=== PATIENT | male | born 1970 | race Caucasian/White ===

== ENCOUNTER 2021-08-18 10:37 | Outpatient (REF) | payer MEDICARE, SELFPAY ==
--- NOTE | ~2021-08-18 | CT_ITS ---
EXAMINATION: CT CHEST WITH CONTRAST CLINICAL INFORMATION: Pulmonary fibrosis. COMPARISON: None. TECHNIQUE: Multidetector volumetric CT imaging of the chest was obtained after the administration of 75 mL of Omnipaque 350 intravenous contrast without immediate adverse reactions. Axial MIP volume rendering provided. Sagittal and coronal reformatted images were obtained. This CT examination was performed using dose optimization techniques as appropriate, variously including the following: *Automated exposure control *Adjustment of mA and/or kV according to patient size (this includes techniques or standardized protocols for targeted exams where dose is matched to indication/reason for exam; i.e. extremities or head) *Use of iterative reconstruction technique DLP: 152 mGy-cm FINDINGS: RIVERBOAT MASTER: Expanded lungs with a small nodule in the right midlung. LUNGS: The lungs are well-expanded and clear of acute pneumonic process. There is a 7 mm calcified nodule in the right upper lobe axial image 76/9. No additional calcified or noncalcified pulmonary nodules are visualized. There are several small parenchymal cysts seen in the right lower lobe, left upper lobe and right middle lobe. Minimal atelectatic changes are seen in the lingula. There is no interstitial thickening or honeycombing visualized. MEDIASTINUM: The thyroid lobes are symmetric and normal. Central trachea and the bronchi are widely patent. There are small shotty lymph nodes in the mediastinum. The heart size and the great vessels are normal caliber. There is no pericardial effusion. PLEURA: There is no pleural effusion. No pleural mass or thickening. AXILLA: No lymphadenopathy. UPPER ABDOMEN: Visualized liver, spleen, pancreas and bilateral adrenal glands are unremarkable. OSSEOUS STRUCTURES: No aggressive lytic or sclerotic process is seen. CT/CT chest w con IMPRESSION: Calcified nodule in the right upper lobe likely a granuloma. There is no interstitial thickening or honeycombing to suspect any pulmonary fibrosis at this time. There are small pulmonary cysts in the right upper, lower lobe and lingular segments. Minimal atelectatic changes in the lingula. Fleischner guidelines were followed.
[2021-08-18] MEDS: iohexoL 350 MG/ML 100 ML INFUS..BTL IV (11:40)
== END 2021-08-18 10:38 | disposition home or self-care (01) ==
LOC: HO.CT 10:37
PROVIDERS: PCP Hospitalist; Visit Provider Hospitalist
DX: J84.10 Pulmonary fibrosis, unspecified (principal)
CPT/HCPCS: 71260; Q9967

== ENCOUNTER 2022-02-18 07:57 | Outpatient (REF) | payer MEDICARE, SELFPAY ==
--- NOTE | ~2022-02-18 | CT_ITS ---
CT/CT chest w IV con IMPRESSION: Right upper lobe 6 mm calcified nodule is unchanged. No new or enlarging pulmonary nodule. Fleischner guidelines were followed. EXAMINATION: CT CHEST WITH CONTRAST CLINICAL INFORMATION: Abnormal chest results COMPARISON: 08/18/2021 TECHNIQUE: Multidetector volumetric CT imaging of the chest was obtained after the administration of 65 mL of Omnipaque 350 intravenous contrast without immediate adverse reactions. Axial MIP volume rendering provided. Sagittal and coronal reformatted images were obtained. This CT examination was performed using dose optimization techniques as appropriate, variously including the following: *Automated exposure control *Adjustment of mA and/or kV according to patient size (this includes techniques or standardized protocols for targeted exams where dose is matched to indication/reason for exam; i.e. extremities or head) *Use of iterative reconstruction technique DLP: 116 FINDINGS: LUNGS: Right upper lobe 6 mm calcified nodule (5:81), unchanged. No new or enlarging pulmonary nodule. Central airways are patent. Again seen are small parenchymal cysts in the right lower lobe, left upper lobe and right middle lobe. MEDIASTINUM: No mediastinal adenopathy. No hilar adenopathy. No significant coronary artery atherosclerotic calcifications. PLEURA: There is no pleural effusion. No pleural mass or thickening. AXILLA: No lymphadenopathy. UPPER ABDOMEN: Unremarkable. OSSEOUS STRUCTURES/SOFT TISSUES: Symmetric gynecomastia.
[2022-02-18] MEDS: iohexoL 350 MG/ML 100 ML INFUS..BTL IV (09:16)
[2022-02-21 13:29] LABS: Creatinine POC 0.6 mg/dL (0.5-1.4); GFR POC > 60
== END 2022-02-18 07:58 | disposition home or self-care (01) ==
LOC: HO.CT 07:57
PROVIDERS: Visit Provider Hospitalist
DX: R93.89 Abnormal findings on diagnostic imaging of other specified body structures (principal)
CPT/HCPCS: 71260; 82565; Q9967

== ENCOUNTER → 2022-07-05 10:08 | Outpatient (BNVA) | payer MEDICARE, OTHER, SELFPAY | PROVIDERS: PCP Hospitalist; Visit Provider Internal Medicine | DX: Z01.818 Encounter for other preprocedural examination (principal) | CPT/HCPCS: 99202 ==

== ENCOUNTER 2022-08-11 07:32 | Outpatient (REF) | payer MEDICARE, OTHER, SELFPAY ==
--- NOTE | ~2022-08-11 | CT_ITS ---
EXAMINATION: CT CHEST WITHOUT CONTRAST CLINICAL INFORMATION: Right upper lobe 6 mm calcified nodule COMPARISON: Previous chest CT scans February 2022 and August 2021 TECHNIQUE: Multidetector volumetric CT imaging of the chest was done. Axial MIP volume rendering provided. Sagittal and coronal reformatted images were obtained. This CT examination was performed using dose optimization techniques as appropriate, variously including the following: *Automated exposure control *Adjustment of mA and/or kV according to patient size (this includes techniques or standardized protocols for targeted exams where dose is matched to indication/reason for exam; i.e. extremities or head) *Use of iterative reconstruction technique DLP: 235 mGy-cm FINDINGS: LUNGS: Limited exam due to artifact from respiratory motion. Mild paraseptal and edema. This all stable 2 mm left upper lobe nodule axial image 89 series 5. 6 mm calcified right middle lobe nodule axial image 216 series 5 that is stable. Scarring or subsegmental atelectasis in the inferior segment of the lingula. Small scattered lung cysts largest measuring 1.5 cm in the right lower lobe. MEDIASTINUM: Small calcified right hilar and mediastinal lymph nodes suggestive of old granulomatous disease. No enlarged lymph nodes. Normal heart size. No pericardial effusion. Normal caliber thoracic aorta. CORONARY ARTERY CALCIFICATION: Mild PLEURA: There is no pleural effusion. No pleural mass or thickening. AXILLA: No lymphadenopathy. UPPER ABDOMEN: Unremarkable. OSSEOUS STRUCTURES: Unremarkable. CT/CT chest wo IV con IMPRESSION: Limited exam due to respiratory motion. Mild emphysema and cystic changes. Stable pulmonary nodules probably related to granulomatous disease.. Pulmonary nodules are stable going back to oldest available chest CT from one year ago and no additional chest CT follow-up recommended. Fleischner guidelines were followed.
== END 2022-08-11 07:33 | disposition home or self-care (01) ==
LOC: HO.CT 07:32
PROVIDERS: PCP Hospitalist; Visit Provider Hospitalist
DX: R91.1 Solitary pulmonary nodule (principal)
CPT/HCPCS: 71250

== ENCOUNTER 2022-11-03 10:15 | Day surgery (SDC) | payer MEDICARE, SELFPAY ==
[2022-11-02 11:56] VITALS: BMI 26.6
--- NOTE | 2022-11-02 13:35 | HO.ANESPROP2 ---
Documented by User: Reyna Carballo NP 11/02/22 14:39 HPI - Anesthesia Eval Consult details Narrative: 52yo M for Upper Endoscopy and Colonoscopy SN[facility] resident TBI, Seizures. Does not sign for self PMFSH Active Problems Active Problems: All Active Problems (Updated 11/02/22 @ 11:59 by Juli Doyle RN) Colon cancer screening (Acute) Past Medical History Medical History Cancer HIV (human immunodeficiency virus infection) History of traumatic head injury Seizures Lung granuloma Surgical History Surgical History Hx of appendectomy Social History Social History Household Members: Other Household Members Other:: Giovanny garcía Advance Directives: No Advance Directives Information Provided: Yes Meds Allergies Allergy/AdvReac Type Severity Reaction Status Date / Time No Known Allergies Allergy Verified 07/05/22 10:15 Home Medications Medication Instructions Recorded Confirmed Last Taken Type acetaminophen 325 mg capsule 325 mg PO QID PRN 07/05/22 Unknown History adjuvant AS01B (PF)vial 1 of 2 ml IM 07/05/22 Unknown History (Shingrix Adjuvant Component (PF) intramuscular suspension) bictegravir 50 mg-emtricitabine 1 tab PO DAILY 07/05/22 Unknown History 200 mg-tenofovir alafenam 25 mg tablet (Biktarvy) carbamazepine 100 mg 400 mg PO DAILY 07/05/22 Unknown History capsule,extended release [id number] levetiracetam 1,000 mg tablet 1,000 mg PO BID 07/05/22 Unknown History (Keppra) loperamide 2 mg capsule 2 mg PO Q6H PRN 07/05/22 Unknown History lorazepam 2 mg tablet 2 mg PO BEDTIME PRN 07/05/22 Unknown History lurasidone 80 mg tablet (Latuda) 80 mg PO DAILY 07/05/22 Unknown History metoprolol succinate 25 mg 25 mg PO BID 07/05/22 Unknown History tablet,extended release 24 hr polyethylene glycol 3350 17 17 g PO DAILY 07/05/22 Unknown History gram/dose oral powder (Miralax) sennosides 8.6 mg capsule (senna) 8.6 mg PO BEDTIME 07/05/22 Unknown History sodium chloride 1 gram tablet 1,000 mg PO TID 07/05/22 Unknown History sodium phosphates 19 gram-7 118 ml TX DAILY PRN 07/05/22 Unknown History gram/118 mL enema (Fleet Enema) Exam Exam Date and Time: November 02, 2022 1335 Height,Weight and Vital Signs: Height 5 ft 5 in Weight 72.575 kg Assessment and Plan Assessment Anesthesia Assessment: Chart Reviewed Documented by User: Lilly Britton MD 11/03/22 11:39 [facility] Past Medical History Medical History Cancer HIV (human immunodeficiency virus infection) History of traumatic head injury Seizures Lung granuloma Surgical History Surgical History Hx of appendectomy History of Problems with Anesthesia: No Social History Social History Household Members: Other Household Members Other:: Carenilsa garcía Advance Directives: No Advance Directives Information Provided: Yes Meds Allergies Allergy/AdvReac Type Severity Reaction Status Date / Time No Known Allergies Allergy Verified 07/05/22 10:15 Home Medications Medication Instructions Recorded Confirmed Last Taken Type acetaminophen 325 mg capsule 325 mg PO QID PRN 07/05/22 Unknown History adjuvant AS01B (PF)vial 1 of 2 ml IM 07/05/22 Unknown History (Shingrix Adjuvant Component (PF) intramuscular suspension) bictegravir 50 mg-emtricitabine 1 tab PO DAILY 07/05/22 Unknown History 200 mg-tenofovir alafenam 25 mg tablet (Biktarvy) carbamazepine 100 mg 400 mg PO DAILY 07/05/22 Unknown History capsule,extended release [id number] levetiracetam 1,000 mg tablet 1,000 mg PO BID 07/05/22 Unknown History (Keppra) loperamide 2 mg capsule 2 mg PO Q6H PRN 07/05/22 Unknown History lorazepam 2 mg tablet 2 mg PO BEDTIME PRN 07/05/22 Unknown History lurasidone 80 mg tablet (Latuda) 80 mg PO DAILY 07/05/22 Unknown History metoprolol succinate 25 mg 25 mg PO BID 07/05/22 Unknown History tablet,extended release 24 hr polyethylene glycol 3350 17 17 g PO DAILY 07/05/22 Unknown History gram/dose oral powder (Miralax) sennosides 8.6 mg capsule (senna) 8.6 mg PO BEDTIME 07/05/22 Unknown History sodium chloride 1 gram tablet 1,000 mg PO TID 07/05/22 Unknown History sodium phosphates 19 gram-7 118 ml TX DAILY PRN 07/05/22 Unknown History gram/118 mL enema (Fleet Enema) Exam Airway Mallampati Class: II (edentulous) TM Dist: >3cm Neck ROM: Full Loose/Missing/Broken Teeth: Yes, Upper and Lower Heart: RRR Lungs: CTA Assessment and Plan Assessment Anesthesia Assessment: Anesthesia Plan Discussed Final Anesthetic Review History of Problems with Anesthesia: No NPO: Yes ASA Class: III Final Preanesthetic Review: Meds/Allgs Chart Reviewed, Consent Obtained/Reviewed and Anes Risks/Benef Reviewed Patient Risk: Intermediate Procedure Risk: Intermediate Anesthetic Plan Anesthetic Plan: MAC: Disposition: Standard PACU
[2022-11-03 10:52] VITALS: BP 118/74; PULSE 74; RESP 16; TEMP 36.5; O2SAT 99
--- NOTE | 2022-11-03 11:21 | PC.NURSE ---
A+Ox1, legally blind, needs assistance walking Olinda from [facility] present dementia memory loss from minute to minute consents obtained from guardian/sister pricila oterowilber silvestre [phone]
--- NOTE | 2022-11-03 11:22 | MHC.SHP ---
Pre-Procedural Eval Section A Date of Service: 11/03/22 Section B Chief Complaint: Anemia Details of Present Illness: PMH: prev CVA, behavorial disorder, dementia, seizure disorder, Present Medications: see Short Stay Collaborative assessment Allergies: Allergies Allergy/AdvReac Type Severity Reaction Status Date / Time No Known Allergies Allergy Verified 07/05/22 10:15 Review of Systems Review of Systems Comment: Limited ROS due to mental status Exam Exam Comment: Gen appear: No acute distress HEENT: no icterus Chest: No overt resp distress Abd: soft, nontender, nondistended Psych: Stable affect, answering questions appropriately Neuro: A/Ox3 noted to move all extremities spontaneously Ext: no peripheral edema Plan I have reviewed the history and physical and performed a pertinent physical examination on my patient. No changes have occurred unless specified. Consent taken from HCP/sister Latoya Tatum Time Spent With Patient Time: Total time managing care of this patient today ____ minutes.
--- NOTE | 2022-11-03 11:42 | P.OP_ITS ---
Operative Note Operative Note Date of Service: 11/03/22 Narrative: Procedure:?Esophagogastroduodenoscopy and colonoscopy Endoscopist:?Lupis Collier MD Indication:?Anemia Anesthesia Provider:?Jaqui Dial CRNA Anesthesia Type:?MAC Instrument:?Olympus GIF-H190, [id number]-H190L EGD Procedure:?? The procedure, indications, preparation and potential complications were reviewed with the patient's healthcare proxy/sister who indicated understanding and gave written informed consent to proceed over the phone. A physical exam was performed. The endoscope was introduced through the mouth, and advanced to the second part of duodenum. The mucosa was carefully examined on slow withdrawal of the endoscope. There were no immediate complications. Patient tolerated the procedure well. EGD Findings:? * Esophagus:? Erythema and erosions < 5mm at the GEJ. The Z-line is at 40 cm. * Stomach:? Erythema and erosions with heme noted in the body and antrum of the stomach. Retroflexion performed in the fundus. Random cold forceps biopsies were taken to rule out H pylori. * Duodenum:? Erythema in the duodenal bulb noted. Cold forceps biopsies were taken from the duodenal bulb and 2nd portion the duodenum to rule out celiac sprue. Colonoscopy Procedure:? The patient was then turned for the colonoscopy. A digital rectal exam was performed which was normal.? A distal attachment cap was affixed to the tip of the scope and the colonoscope was then inserted through the anus and advanced through the colon to the ilecolonic anatomosis at 70 cm. Mucosa was carefully examined under high definition white light as the instrument was slowly withdrawn in a retrograde panoramic fashion. Retroflexion was performed in rectum. The procedure was not difficult. There were no immediate obvious complications. The quality of the prep was BBPS: 2+2+2 = adequate Withdrawal time: 10 minutes Limitations: No limitation. Findings: Mucosa: Normal mucosa to ileocolonic anastomosis. Protruding lesions: * Large internal hemorrhoids with stigmata of recent bleeding. Impression: 1. Grade A esophagitis 2. Gastritis (biopsy) 3. Bulbar duodenitis (biopsy) 4. Normal colon mucosa 5. Internal hemorrhoids Recommendations:?? * Await pathology results. * Start Omeprazole 20mg BID x 4 weeks, and then decrease to once daily indefinitely. * Repeat colonoscopy for asymptomatic colon cancer screening in 5 years due to prep.
[2022-11-03 12:05] VITALS: BP 103/82; PULSE 77; RESP 16; TEMP 36.6
[2022-11-03 12:20] VITALS: BP 109/70; PULSE 64; RESP 18; O2SAT 98
[2022-11-03 12:35] VITALS: BP 118/68; PULSE 77; RESP 18; TEMP 36.6; O2SAT 100
== END 2022-11-03 13:10 | disposition home or self-care (01) ==
PROVIDERS: PCP Hospitalist; Visit Provider Internal Medicine
PROC: (CPT 43239; principal; 2022-11-03 11:00)
DX: Z12.11 Encounter for screening for malignant neoplasm of colon (principal); Z85.038 Personal history of other malignant neoplasm of large intestine; D64.9 Anemia, unspecified; K64.8 Other hemorrhoids; Z98.0 Intestinal bypass and anastomosis status; B20 Human immunodeficiency virus [HIV] disease; K29.70 Gastritis, unspecified, without bleeding; K20.80 Other esophagitis without bleeding; K29.80 Duodenitis without bleeding; G40.909 Epilepsy, unspecified, not intractable, without status epilepticus; J84.10 Pulmonary fibrosis, unspecified; F03.918 Unspecified dementia, unspecified severity, with other behavioral disturbance; Z87.820 Personal history of traumatic brain injury; Z87.891 Personal history of nicotine dependence
CPT/HCPCS: 43239; G0105; 88305; 88342

== ENCOUNTER → 2022-11-03 10:15 | Outpatient (BNV) | payer MEDICARE, SELFPAY | PROVIDERS: PCP Hospitalist; Visit Provider Internal Medicine | DX: D64.9 Anemia, unspecified (principal); K29.70 Gastritis, unspecified, without bleeding; K20.90 Esophagitis, unspecified without bleeding; K64.8 Other hemorrhoids | CPT/HCPCS: 43239; G0121 ==

== ENCOUNTER 2022-11-16 08:47 | Outpatient (AMB) | payer MEDICARE, SELFPAY ==
[2022-11-16 08:49] VITALS: BMI 26.4
--- NOTE | 2022-11-16 08:49 | MHC.OFFVIS ---
Intake Vital Signs 11/16/22 08:49 Height 5 ft 5 in Weight 158 lb 11.725 oz BMI 26.4 Intake Visit Reasons: S/P Double/ Dr. Collier Intake Note: Theo presents in the office as a follow up EGD and COLO. CC: No concerns since his procedures. Just here for the results. Allergies No Known Allergies Allergy (Verified 11/16/22 08:52) HPI HPI Comments History of Present Illness Details This is a 52 y.o M with PMH of prev CVA, behavorial disorder, dementia, seizure disorder, who is here for follow up after endoscopy for anemia. 07/05/22: Hx was obtained from the pt as well as the attendant from [employer] accompaying him. Patient reports no gastrointestinal symptoms include abdominal pain, nausea vomiting, diarrhea. No blood in stool. No family history of colon cancer or colon polyps that he is aware of. Pt and sister had initially opted for screening through cologuard however updated labs were significant for anemia and therefore decision was made to proceed with EGD and colo. 11/03/22: 1. Grade A esophagitis 2. Gastritis (biopsy) 3. Bulbar duodenitis (biopsy) 4. Normal colon mucosa 5. Internal hemorrhoids Path: A. Duodenum, biopsy: Duodenal mucosa within normal limits; preserved villous architecture and no increased intraepithelial lymphocytes seen. B. Stomach, random, biopsy: Gastric antral mucosa with reactive gastropathy; gastric body mucosa within normal limits; negative for Helicobacter pylori, intestinal metaplasia and dysplasia 11/16/22: Pt here for follow up after scopes. Accompanied by his caretakers. Reviewed findings on EGD/colo. Reviewed med list and has been taking omeprazole 20 BID x 2 weeks at least. Results have already been reviewed with sister/HCP Ana. [facility] Medical History Cancer HIV (human immunodeficiency virus infection) History of traumatic head injury Seizures Lung granuloma Surgical History Hx of colonoscopy History of esophagogastroduodenoscopy (EGD) Hx of appendectomy Social History Household Members: Other Household Members Other:: [facility] [place] Patient Tobacco Use Status: Former Tobacco user Review of Systems Const All systems reviewed & are unremarkable except as noted in HPI and below Physical Exam Vital Signs: BMI result Body Mass Index 26.4 Gen appear: NAD, not making eye contact HEENT: nonicteric Chest: No overt resp distress CVS: Regular S1/S2 Abd: soft, nontender, nondistended Ext: no peripheral edema Neuro: noted to move all extremities spontaneously Assessment & Plan Assessment & Plan (1) Anemia: Code(s): D64.9 - Anemia, unspecified (2) Esophagitis: Code(s): K20.90 - Esophagitis, unspecified without bleeding (3) Gastritis: Code(s): K29.70 - Gastritis, unspecified, without bleeding (4) Colon cancer screening: Code(s): Z12.11 - Encounter for screening for malignant neoplasm of colon Plan Doing well. No GI concerns today. Plan: - Cont omeprazole 20 BID x 8 weeks total and then once daily - Stay upright for meals and for an hour after - Repeat colo for CRC screening in 5 years due to prep. Follow up in GI office PRN Coding Level of Care Code Est Pt Level 4 (87578) Diagnoses Anemia D64.9 Esophagitis K20.90 Gastritis K29.70 Colon cancer screening Z12.11
== END 2022-11-16 09:47 | disposition home or self-care (01) ==
PROVIDERS: PCP Hospitalist; Visit Provider Internal Medicine
DX: D64.9 Anemia, unspecified (principal); K20.90 Esophagitis, unspecified without bleeding; K29.70 Gastritis, unspecified, without bleeding; Z12.11 Encounter for screening for malignant neoplasm of colon
CPT/HCPCS: 99214

== ENCOUNTER → 2022-11-16 08:47 | Outpatient (BNVA) | payer MEDICARE, SELFPAY | PROVIDERS: PCP Hospitalist; Visit Provider Internal Medicine | DX: K20.90 Esophagitis, unspecified without bleeding (principal); K29.70 Gastritis, unspecified, without bleeding; K29.80 Duodenitis without bleeding; K64.8 Other hemorrhoids; D64.9 Anemia, unspecified; Z98.890 Other specified postprocedural states | CPT/HCPCS: 99212 ==

== ENCOUNTER 2023-09-25 12:16 | Inpatient (IN) | payer MEDICARE, SELFPAY ==
[2023-09-25] VITALS (10 sets, daily range): BP systolic 96–127; BP diastolic 61–82; PULSE 93–127; RESP 17–25; TEMP 35.1–38.8; O2SAT 97–99; BMI 27.1
--- NOTE | ~2023-09-25 | XR_ITS ---
EXAMINATION: XR CHEST CLINICAL INFORMATION: Pneumonia. Patient on able to follow instructions, not awake COMPARISON: None available. TECHNIQUE: AP upright view of the chest, 1:42 PM FINDINGS: No significant abnormality is noted involving the heart, lungs, mediastinum, bony thorax or soft tissues. Mild biapical pleural thickening is noted. XR/XR chest 2V IMPRESSION: No acute cardiopulmonary disease.
--- NOTE | ~2023-09-25 | CT_ITS ---
EXAMINATION: CT CHEST WITHOUT CONTRAST CLINICAL INFORMATION: Question aspiration pneumonia. COMPARISON: None available. TECHNIQUE: Multidetector volumetric CT imaging of the chest was done. Axial MIP volume rendering provided. Sagittal and coronal reformatted images were obtained. This CT examination was performed using dose optimization techniques as appropriate, variously including the following: *Automated exposure control *Adjustment of mA and/or kV according to patient size (this includes techniques or standardized protocols for targeted exams where dose is matched to indication/reason for exam; i.e. extremities or head) *Use of iterative reconstruction technique DLP: 477 mGy-cm FINDINGS: Limited exam secondary to patient motion and breathing artifact. ICT TEACHER: Hypoexpanded lungs without acute process. LUNGS: The lungs are well-expanded without any acute pneumonic process. There is dependent posterior basilar atelectasis or scarring. There is a right upper lobe 5 mm calcified nodule image 27/3. No additional nodules seen. Small pulmonary cyst is seen in left upper lobe and right lower lobe. MEDIASTINUM: Heart size and the great vessels are normal caliber. No pericardial effusion seen. There are small shotty lymph nodes in the mediastinum. The central trachea and bronchi are widely patent. CORONARY ARTERY CALCIFICATION: None visualized on this study. PLEURA: There is no pleural effusion. No pleural mass or thickening. AXILLA: There are small shotty axillary lymph nodes seen. UPPER ABDOMEN: Visualized liver, spleen, pancreas and bilateral adrenal glands are unremarkable. OSSEOUS STRUCTURES: No aggressive lytic or sclerotic process seen. CT/CT chest wo IV con IMPRESSION: 1. No acute process seen. 2. There is a 5 mm calcified nodule right upper lobe. 3. There is dependent posterior bibasilar atelectasis or scarring. 4. Small shotty lymph nodes in the mediastinum and axilla. Fleischner guidelines were followed.
--- NOTE | ~2023-09-25 | CT_ITS ---
EXAMINATION: CT HEAD WITHOUT CONTRAST CLINICAL INFORMATION: Mechanical fall. Blunt head trauma without loss of consciousness, significant head injury and posttraumatic headache. COMPARISON: CT scan of brain on 09/25/2023 TECHNIQUE: Contiguous axial imaging was performed from the skull base to vertex without intravenous administration of contrast. This CT examination was performed using dose optimization techniques as appropriate, variously including the following: *Automated exposure control *Adjustment of mA and/or kV according to patient size (this includes techniques or standardized protocols for targeted exams where dose is matched to indication/reason for exam; i.e. extremities or head) *Use of iterative reconstruction technique DLP: 824 mGy-cm FINDINGS: Ventricles, sulci and cisterns are dilated, with mild disproportional ventriculomegaly. Chronic infarction with cystic encephalomalacia is seen in left head of caudate nucleus, could involve the anterior limb and genu of left internal capsule, bilateral posterior gyri recti. A chronic lacunar infarct is also seen in posterior lateral left lentiform nucleus (putamen). Anterior left coronal radiata shows asymmetric decrease in attenuation.. There is no midline shift, no abnormal intra- or extra- axial fluid accumulation. Padron and white matter differentiation is normal. Bone window images show no evidence of skull fracture. CT/CT head/brain wo IV con IMPRESSION: 1. No evidence of intracranial hemorrhage or skull fracture. 2. Unchanged Chronic infarction with cystic encephalomalacia in left head of caudate nucleus, could involve the anterior limb and genu of left internal capsule, bilateral posterior gyri recti. 3. Unchanged Chronic lacunar infarct in posterior lateral left lentiform nucleus (putamen). 4. Unchanged Anterior left jimenez radiata shows asymmetric decrease in attenuation. 5. Unchanged Mild atrophy with mild disproportional ventriculomegaly. Electronically signed by: Rick Krishnamurthy MD 09/28/2023 03:46 PM EDT
--- NOTE | ~2023-09-25 | CT_ITS ---
EXAMINATION: CT HEAD WITHOUT CONTRAST CLINICAL INFORMATION: Altered mental status COMPARISON: None. TECHNIQUE: Multidetector CT examination of the head is performed without contrast. This CT examination was performed using dose optimization techniques as appropriate, variously including the following: *Automated exposure control *Adjustment of mA and/or kV according to patient size (this includes techniques or standardized protocols for targeted exams where dose is matched to indication/reason for exam; i.e. extremities or head) *Use of iterative reconstruction technique The technologist indicates that the patient was unable to remain still. The patient was reportedly combative on the table. DLP: 1329 mGy-cm FINDINGS: There is marked motion artifact. This limits the exam. There is no evidence of a large recent intracranial hemorrhage or extra-axial collection. The midline structures are nondisplaced. The lateral ventricles appear somewhat prominent. There is some low-attenuation suspected in the medial left temporal region and just above the left orbital apex. There is a calcification adjacent to the lower left side of the third ventricle. This does not appear metallic. There is no evidence of a solid intra-axial mass. There are no other suspicious focal areas of abnormal brain attenuation. The galindo-white interface is within normal limits. There is no evidence of acute territorial infarct. There is low-attenuation adjacent to the frontal horn left lateral ventricle which extends toward the area of low-attenuation on the left side near the medial temporal region. No convincing mass effect. There is some low-attenuation in the medial left temporal region adjacent to the extreme capsule. The paranasal sinuses and mastoids are within normal limits. CT/CT head/brain wo IV con IMPRESSION: 1. Limited study. 2. No large acute hemorrhage. 3. There is some low-attenuation on the left with at least a small calcification. No convincing mass effect. This could be a sequelae from previous trauma or infarct but is nonspecific. Direct comparison with any previous studies would be helpful. If there are no previous and patient condition allows, repeat should be considered
--- NOTE | ~2023-09-25 | XR_ITS ---
RADIOGRAPH LEFT KNEE CLINICAL HISTORY: Fall. COMPARISON: No relevant prior studies are available for comparison. TECHNIQUE: 2 views of the left knee were obtained. FINDINGS: No acute fracture or dislocation. Joint spaces are maintained. No abnormal soft tissue calcifications. No joint effusion. XR/XR knee LT 2V IMPRESSION: No significant radiographic abnormality of the left knee. Electronically signed by: Nia Jacobs MD 09/28/2023 01:09 PM EDT
--- NOTE | 2023-09-25 12:51 | ECG_ITS ---
Test Reason : AMS Blood Pressure : / mmHG Vent. Rate : 124 BPM Atrial Rate : 124 BPM P-R Int : 146 ms QRS Dur : 064 ms QT Int : 318 ms P-R-T Axes : 060 -60 022 degrees QTc Int : 456 ms Sinus tachycardia Left anterior fascicular block Nonspecific ST abnormality Abnormal ECG No previous ECGs available Referred By: Jonathan iXe Electronically Signed By:JANIYA CAMPOS
--- NOTE | 2023-09-25 12:56 | ED_ITS ---
HPI - Altered Mental Status General Chief Complaint: Altered Mental Status Stated Complaint: AMS,?ASP PNA FROM SNF PER EMS Time Seen by Provider: 09/25/23 12:49 History of Present Illness ED Provider: Rojas HPI narrative: 53-year-old male with past medical history of encephalopathy, frontotemporal neurocognitive disorder, HIV, cerebral ischemia, DNR/DNI per [facility] report presenting for altered mental status. Per EMS patient has been experiencing cough, tachycardia and worsening altered mental status with concerns for aspiration a he has apparently had aspiration pneumonia in the past. Patient is somnolent at bedside and unable to provide history. Related Data Home Medications ?Medication ?Instructions ?Recorded ?Confirmed acetaminophen 325 mg capsule 325 mg PO QID PRN 07/05/22 adjuvant AS01B (PF)vial 1 of 2 ml IM 07/05/22 (Shingrix Adjuvant Component (PF) intramuscular suspension) bictegravir 50 mg-emtricitabine 1 tab PO DAILY 07/05/22 200 mg-tenofovir alafenam 25 mg tablet (Biktarvy) carbamazepine 100 mg 400 mg PO DAILY 07/05/22 capsule,extended release [id number] levetiracetam 1,000 mg tablet 1,000 mg PO BID 07/05/22 (Keppra) loperamide 2 mg capsule 2 mg PO Q6H PRN 07/05/22 lorazepam 2 mg tablet 2 mg PO BEDTIME PRN 07/05/22 lurasidone 80 mg tablet (Latuda) 80 mg PO DAILY 07/05/22 metoprolol succinate 25 mg 25 mg PO BID 07/05/22 tablet,extended release 24 hr polyethylene glycol 3350 17 17 g PO DAILY 07/05/22 gram/dose oral powder (Miralax) sennosides 8.6 mg capsule (senna) 8.6 mg PO BEDTIME 07/05/22 sodium chloride 1 gram tablet 1,000 mg PO TID 07/05/22 sodium phosphates 19 gram-7 118 ml IN DAILY PRN 07/05/22 gram/118 mL enema (Fleet Enema) Previous Rx's ?Medication ?Instructions ?Recorded omeprazole 20 mg capsule,delayed 20 mg PO BID #90 caps 11/03/22 release Allergies Allergy/AdvReac Type Severity Reaction Status Date / Time No Known Allergies Allergy Unverified 09/25/23 12:45 Review of Systems 2 Review of Systems: Altered mental status, cough, tachycardia Yes Unobtainable due to mental status [facility] Past Medical History Attestation statement: The following information was validated with the patient. [facility] Narrative: HIV, frontotemporal neurocognitive disorder, cerebral ischemia Source: old records reviewed Medical History Cancer HIV (human immunodeficiency virus infection) History of traumatic head injury Seizures Lung granuloma Surgical History Hx of colonoscopy History of esophagogastroduodenoscopy (EGD) Hx of appendectomy Social History Social History Household Members: Other Household Members Other:: Giovanny garcía Patient Tobacco Use Status: Former Tobacco user Advance Directives: No Advance Directives Information Provided: No Physical Exam ED Vital Signs: Vital Signs - 24 hr 09/25/23 12:43 09/25/23 12:45 09/25/23 15:10 Temperature 100.6 F H 101.9 F H 95.1 F L Pulse Rate 127 H 113 H Respiratory Rate 21 H 17 Blood Pressure 100/61 96/72 Pulse Oximetry 97 99 Oxygen Delivery Method Room Air Room Air 09/25/23 15:18 09/25/23 16:11 09/25/23 17:48 Temperature 99.3 F 98.5 F Pulse Rate 112 H 106 H 103 H Respiratory Rate 24 H 25 H 18 Blood Pressure 96/72 103/71 109/73 Pulse Oximetry 99 99 98 Oxygen Delivery Method Room Air Room Air Room Air 09/25/23 18:47 Temperature 98.0 F Pulse Rate 102 H Respiratory Rate 21 H Blood Pressure 100/79 Pulse Oximetry 98 Oxygen Delivery Method Room Air BMI result Body Mass Index 27.1 Head normocephalic atraumatic, lungs clear auscultation bilaterally however patient was coughing at bedside, tachycardic, abdomen is soft, nontender nondistended Course Course Course Narrative: Evaluated patient and ordered labs, imaging and antibiotics Reevaluation(s) Reevaluation #1: 3rd Liter ordered Time: 15:06 Medications Administered Discontinued Medications Generic Name Dose Route Start Last Admin Trade Name Freq PRN Reason Stop Dose Admin Acetaminophen 650 mg 09/25/23 12:53 09/25/23 13:07 Acetaminophen Supp 650 Mg Supp.Rect IN 09/25/23 12:54 650 mg ONCE ONE Administration Sodium Chloride 1,000 mls @ 999 mls/hr 09/25/23 13:00 09/25/23 15:15 Ns IV 09/25/23 14:00 Infused .Q1H1M NIKKO Infusion Sodium Chloride 1,000 mls @ 999 mls/hr 09/25/23 13:00 09/25/23 15:15 Ns IV 09/25/23 14:00 Infused .Q1H1M NIKKO Infusion Piperacillin Sod/Tazobactam 50 mls @ 100 mls/hr 09/25/23 12:54 09/25/23 14:39 Sod 3.375 gm/ Sodium Chloride IV 09/25/23 13:23 Infused ONCE ONE Infusion Vancomycin HCl 2,000 mg in 500 mls @ 250 mls/hr 09/25/23 13:30 09/25/23 16:09 Vancomycin/Ns IV 09/25/23 15:29 Infused ONCE ONE Infusion Sodium Chloride 1,000 mls @ 999 mls/hr 09/25/23 15:15 09/25/23 16:24 Ns IV 09/25/23 16:15 Infused .Q1H1M NIKKO Infusion Medical Decision Making Medical Decision Making [facility] Narrative: I am concerned for the following; sepsis, pneumonia, UTI, COVID, flu, harley I ordered labs, fluids, antibiotics, chest x-ray CT head ordered to rule out head bleed --> negative for acute trauma Patient given 3 L of fluid with improvement in symptoms; 4th liter ordered At this point I do not feel that patient needs vasopressors as his blood pressure has responded well to fluids and he does not have a lactic acid. I spoke with hospitalist who accepted the patient to the floor Differential Diagnosis Differential Diagnoses: The differential diagnosis associated with the presentation includes sepsis, aspiration/pnumonia, uti, covid, flu ,harley Consult Healthcare Provider Management of the patient was discussed with: Hospitalist Patient accepted for admission Lab Data [facility] Lab Attestation statement: I reviewed the patient's lab results. Thrombocytopenia, blood in urine likely secondary to catheter placement, normal lactic acid 09/25/23 12:55 09/25/23 12:55 Labs: Lab Results 09/25/23 09/25/23 09/25/23 Range/Units 12:55 13:01 13:14 WBC 4.2 L (4.8-10.8) X10*3/uL RBC 4.26 L (4.60-5.80) X10*6/uL Hgb 14.3 (14.0-18.0) g/dl Hct 40.9 L (42.0-52.0) % MCV 96.0 (80.0-98.0) fL MCH 33.6 H (27.0-33.0) pg MCHC 35.0 (31.0-36.0) g/dl RDW 11.9 (11.0-16.0) % Plt Count 72 L (160-400) X10*3/uL MPV 9.8 (9.4-12.4) fL Immature Gran % (Auto) 0.2 (0.0-0.4) % Neut % (Auto) 67.1 (45-73) % Lymph % (Auto) 22.4 (20-40) % Howell % (Auto) 8.4 (2-11) % Eos % (Auto) 1.7 (0-4) % Baso % (Auto) 0.2 (0-2) % Lymph # (Auto) 0.9 L (1.2-4.9) X10*3/uL Howell # (Auto) 0.4 (0.1-1.2) X10*3/uL Eos # (Auto) 0.1 (0.0-0.4) X10*3/uL Baso # (Auto) 0.0 (0.0-0.2) X10*3/uL Abs Immat Gran (auto) 0.01 (0.00-0.03) X10*3/uL Absolute Neuts (auto) 2.8 (2.0-8.3) x10*3/uL Absolute Nucleated RBC 0.000 (0.0-0.012) X10*3/uL Nucleated RBC % (auto) 0.0 (0.0-0.2) /100WBC VBG pH (7.32-7.43) VBG pCO2 mmHg VBG pO2 mmHg VBG HCO3 (22-26) mmol/L VBG O2 Saturation % VBG Base Excess mmol/L Sodium 145 (135-145) mmol/L Potassium 3.4 (3.3-5.1) mmol/L Chloride 108 (96-108) mmol/L Carbon Dioxide 26 (22-29) mmol/L Anion Gap 14 (12-20) BUN 20 H (9-16) mg/dL Creatinine 0.89 (0.5-1.4) mg/dL Estim Creat Clear Calc 102.9 Estimated GFR > 60 Random Glucose 101 (60-115) mg/dL Lactic Acid 1.5 (0.5-2.0) mmol/L Calcium 9.7 (8.4-10.2) mg/dL Total Bilirubin 0.5 (0.0-1.0) mg/dL Direct Bilirubin 0.2 (0.0-0.5) mg/dL AST 44 H (5-37) U/L ALT 51 H (0-40) U/L Alkaline Phosphatase 96 (39-117) U/L Ammonia (13-55) umol/L Troponin I High Sens 5.2 (<3.5-35.0) ng/L Total Protein 8.5 H (6.5-8.0) g/dL Albumin 4.5 (3.5-5.0) g/dL Procalcitonin 0.02 ng/mL Urine Color Dark Yellow Urine Appearance Cloudy Urine pH 6.0 (5.0-9.0) Ur Specific [place] >= 1.030 H (1.005-1.025) Urine Protein 100 (2+) H (Neg-Trace) mg/dL Urine Glucose (UA) Negative (Negative) mg/dL Urine Ketones >=160 (Negative) mg/dL Urine Blood Large (3+) H (Negative) Urine Nitrite Negative (Negative) Ur Leukocyte Esterase Negative (Negative) Urine RBC >20 H (0-2) /HPF Urine WBC 0-5 (0-5) /HPF Ur Squamous Epith Cells 3-5 (0-2) /HPF Urine Bacteria None Seen (None Seen) Hyaline Casts 3-5 (0-2) /LPF Influenza Type A (PCR) NEGATIVE (Negative) Influenza Type B (PCR) NEGATIVE (Negative) RSV RNA Qual (PCR) NEGATIVE (Negative) SARS-CoV-2 RNA (RT-PCR) NEGATIVE (Negative) 09/25/23 09/25/23 Range/Units 14:37 18:47 WBC (4.8-10.8) X10*3/uL RBC (4.60-5.80) X10*6/uL Hgb (14.0-18.0) g/dl Hct (42.0-52.0) % MCV (80.0-98.0) fL MCH (27.0-33.0) pg MCHC (31.0-36.0) g/dl RDW (11.0-16.0) % Plt Count (160-400) X10*3/uL MPV (9.4-12.4) fL Immature Gran % (Auto) (0.0-0.4) % Neut % (Auto) (45-73) % Lymph % (Auto) (20-40) % Howell % (Auto) (2-11) % Eos % (Auto) (0-4) % Baso % (Auto) (0-2) % Lymph # (Auto) (1.2-4.9) X10*3/uL Howell # (Auto) (0.1-1.2) X10*3/uL Eos # (Auto) (0.0-0.4) X10*3/uL Baso # (Auto) (0.0-0.2) X10*3/uL Abs Immat Gran (auto) (0.00-0.03) X10*3/uL Absolute Neuts (auto) (2.0-8.3) x10*3/uL Absolute Nucleated RBC (0.0-0.012) X10*3/uL Nucleated RBC % (auto) (0.0-0.2) /100WBC VBG pH 7.43 (7.32-7.43) VBG pCO2 27 mmHg VBG pO2 216 mmHg VBG HCO3 18 L (22-26) mmol/L VBG O2 Saturation 100.0 % VBG Base Excess -4.7 mmol/L Sodium (135-145) mmol/L Potassium (3.3-5.1) mmol/L Chloride (96-108) mmol/L Carbon Dioxide (22-29) mmol/L Anion Gap (12-20) BUN (9-16) mg/dL Creatinine (0.5-1.4) mg/dL Estim Creat Clear Calc Estimated GFR Random Glucose (60-115) mg/dL Lactic Acid (0.5-2.0) mmol/L Calcium (8.4-10.2) mg/dL Total Bilirubin (0.0-1.0) mg/dL Direct Bilirubin (0.0-0.5) mg/dL AST (5-37) U/L ALT (0-40) U/L Alkaline Phosphatase (39-117) U/L Ammonia 23 (13-55) umol/L Troponin I High Sens (<3.5-35.0) ng/L Total Protein (6.5-8.0) g/dL Albumin (3.5-5.0) g/dL Procalcitonin ng/mL Urine Color Urine Appearance Urine pH (5.0-9.0) Ur Specific [place] (1.005-1.025) Urine Protein (Neg-Trace) mg/dL Urine Glucose (UA) (Negative) mg/dL Urine Ketones (Negative) mg/dL Urine Blood (Negative) Urine Nitrite (Negative) Ur Leukocyte Esterase (Negative) Urine RBC (0-2) /HPF Urine WBC (0-5) /HPF Ur Squamous Epith Cells (0-2) /HPF Urine Bacteria (None Seen) Hyaline Casts (0-2) /LPF Influenza Type A (PCR) (Negative) Influenza Type B (PCR) (Negative) RSV RNA Qual (PCR) (Negative) SARS-CoV-2 RNA (RT-PCR) (Negative) Independent Interpretation I performed an independent interpretation of an: EKG, Plain X-Ray and CT Scan Interpretation: Sinus tachycardia on EKG without any signs of ischemia I do not appreciate any large consolidation on chest x-ray I did not appreciate any large head bleed on CT scan Radiology Impression Discussion of test interpretation with radiology: I have reviewed the radiologist's reading. Radiologist Impression: No acute head bleed Discharge Plan Discharge Clinical Impression: Sepsis, AMS (altered mental status) Patient Disposition: Admitted As Inpatient Print Language: Yemeni
[2023-09-25 12:59] LABS: MANUAL DIFF FLAG NO
[2023-09-25 13:01] LABS: Basophils Percent Auto 0.2 % (0-2); Eosinophils Absolute Auto 0.1 X10*3/uL (0.0-0.4); Eosinophils Percent Auto 1.7 % (0-4); Hematocrit 40.9 % (42.0-52.0); Hemoglobin 14.3 g/dl (14.0-18.0); Imm Gran Abs Auto 0.01 X10*3/uL (0.00-0.03); Imm Gran Pct Auto 0.2 % (0.0-0.4); Lymphocytes Absolute Auto 0.9 X10*3/uL (1.2-4.9); Lymphocytes Percent Auto 22.4 % (20-40); Mean Corpuscular Hemoglobin 33.6 pg (27.0-33.0); Mean Platelet Volume 9.8 fL (9.4-12.4); Monocytes Absolute Auto 0.4 X10*3/uL (0.1-1.2); Monocytes Percent Auto 8.4 % (2-11); Neutrophils Absolute Auto 2.8 x10*3/uL (2.0-8.3); Neutrophils Percent Auto 67.1 % (45-73); Red Blood Count 4.26 X10*6/uL (4.60-5.80); Red Cell Distribution Width 11.9 % (11.0-16.0); White Blood Count 4.2 X10*3/uL (4.8-10.8)
[2023-09-25 13:03] LABS: Platelet Count 72 X10*3/uL (160-400)
[2023-09-25] MEDS: Piperacillin Sodium/Tazobactam 3.375 GM in 0.9 % Sodium Chloride 50 ML IV (13:05)
[2023-09-25] MEDS: Acetaminophen Supp 650 MG SUPP.RECT PR (13:07)
[2023-09-25 13:09] LABS: Lactic Acid 1.5 mmol/L (0.5-2.0)
[2023-09-25 13:09] LABS: Appearance Urine Cloudy; Color Urine Dark Yellow; Glucose Urine UA Negative (Negative); Leukocyte Esterase Urine Negative (Negative); Nitrite Urine Negative (Negative); Specific Gravity - Urine >= 1.030 (1.005-1.025); UMIC TRIGGER UACC YES; Urine Blood Large (3+) (Negative); Urine Ketones >=160 mg/dL (Negative); Urine Protein 100 (2+) mg/dL (Neg-Trace)
[2023-09-25 13:16] LABS: Bacteria Urine None Seen (None Seen); RBC Urine >20 /HPF (0-2); WBC Urine 0-5 /HPF (0-5)
[2023-09-25] MEDS: 0.9 % Sodium Chloride 1,000 ML 999 ML IV ×4 (13:16→19:43)
[2023-09-25] MEDS: vancomycin/NS 2,000 MG/500 ML PLAST..BAG 250 MG IV (13:21)
[2023-09-25 13:27] LABS: Alanine Aminotransferase 51 U/L (0-40); Albumin Level 4.5 g/dL (3.5-5.0); Alkaline Phosphatase 96 U/L (39-117); Anion Gap 14 (12-20); Aspartate Amino Transferase 44 U/L (5-37); Bilirubin Direct 0.2 mg/dL (0.0-0.5); Bilirubin Total 0.5 mg/dL (0.0-1.0); Blood Urea Nitrogen 20 mg/dL (9-16); Calcium 9.7 mg/dL (8.4-10.2); Carbon Dioxide 26 mmol/L (22-29); Chloride 108 mmol/L (96-108); Creatinine Clr Calc Pharmacy 102.9; Estimated Glomerular Filt Rate > 60; Glucose Random 101 mg/dL (60-115); Potassium 3.4 mmol/L (3.3-5.1); Sodium 145 mmol/L (135-145); Total Protein 8.5 g/dL (6.5-8.0); Troponin-I High Sensitivity 5.2 ng/L (<3.5-35.0)
[2023-09-25 13:41] LABS: Procalcitonin 0.02 ng/mL
[2023-09-25 14:06] LABS: Influenza A PCR NEGATIVE (Negative); Influenza B PCR NEGATIVE (Negative); Resp Syncy Virus RNA Qual PCR NEGATIVE (Negative); SARS COV2 PCR INHOUSE NEGATIVE (Negative)
[2023-09-25 14:49] LABS: VBG Base Excess -4.7 mmol/L; VBG HCO3 18 mmol/L (22-26); VBG pCO2 27 mmHg; VBG pH 7.43 (7.32-7.43); VBG pO2 216 mmHg; Venous Blood Gas Refer to POC result
--- NOTE | 2023-09-25 16:25 | PC.NURSE ---
Patient more alert, transferred into hospital bed for comfort
--- NOTE | 2023-09-25 17:49 | PC.NURSE ---
Patient continues to become more alert, vss, pending ct results
[2023-09-25 19:12] LABS: Ammonia 23 umol/L (13-55)
--- NOTE | 2023-09-25 19:45 | PC.NURSE ---
Report taken from Jessy COFFEY, assumed care of pt at this time. Pt resting in bed alert to person, responding to verbal stimuli. VSS. Additional liter of IVF hung and infusing without difficulty. Condom catheter in place. Awaiting CT results and MD reeval.
--- NOTE | 2023-09-25 19:54 | PM.IMHP ---
History of Present Illness Date of Service: 09/25/23 Attending physician on admission: Amparo Malave Chief Complaint: encephalopathy 53-year-old male with frontal temporal dementia, blindness, HIV on HAART therapy, history of CVA, esophagitis/GERD, pulmonary fibrosis, chronic hyponatremia, unspecified epilepsy, history of substance abuse, history of unspecified GI cancer, who has a history of recurrent aspiration on regular texture diet/thin liquids presented to the ED from [facility] where he resides due to acute encephalopathy, increased from baseline. He is typically oriented x3 and forgetful but on exam is not providing any history and only oriented to self. Facility reports he has had a productive cough over the last 24 hours though no witnessed aspiration event. No hypoxia. On arrival though was febrile to 100.9, tachycardic to 127, tachypneic. Soft blood pressures but no hypotension. He is leukopenic with WBC 4.2 with thrombocytopenia 72, no baseline labs available. Renal function normal, electrolyte levels normal. VBG with pH 7.43, pCO2 27, bicarb 18. AST 44, ALT 51. Procalcitonin 0.02. Urinalysis not indicative of infection but with elevated specific gravity, 3+ blood, 2+ protein. Negative for COVID-19, RSV, influenza. CT of the head negative for acute intracranial abnormality which shows evidence of suspected prior infarction or trauma due to some low attenuation of the left with at least a small calcification but no convincing mass effect. EKG shows sinus tachycardia, rate 128 without any acute ischemic changes. In ED has received 4 L IV NS, IV Zosyn and vancomycin. Review of Systems Review of Systems: Yes Unobtainable due to mental status [facility] Medical History Pulmonary fibrosis History of substance use Gastritis Esophagitis History of CVA (cerebrovascular accident) Frontotemporal dementia Cancer HIV (human immunodeficiency virus infection) History of traumatic head injury Seizures Lung granuloma Surgical History Hx of colonoscopy History of esophagogastroduodenoscopy (EGD) Hx of appendectomy Social History Household Members: Other Household Members [facility]:: [facility] Patient Tobacco Use Status: Former Tobacco user Advance Directives: No Advance Directives Information Provided: No Meds Allergies Allergy/AdvReac Type Severity Reaction Status Date / Time No Known Allergies Allergy Unverified 09/25/23 12:45 Home Medications ?Medication ?Instructions ?Recorded ?Confirmed ?Last Taken ?Type acetaminophen 325 mg capsule 650 mg PO Q6H PRN Fever/Pain 07/05/22 09/25/23 Unknown History carbamazepine 100 mg 300 mg PO BEDTIME 07/05/22 09/25/23 Unknown History capsule,extended release [id number] levetiracetam 1,000 mg tablet 2,000 mg PO BID 07/05/22 09/25/23 Unknown History (Keppra) loperamide 2 mg capsule See Rx Instructions .Route 07/05/22 09/25/23 Unknown History .COMPLEX PRN Loose Stool lurasidone 80 mg tablet (Latuda) 80 mg PO DAILY 07/05/22 09/25/23 Unknown History metoprolol succinate 25 mg 25 mg PO BID 07/05/22 09/25/23 Unknown History tablet,extended release 24 hr polyethylene glycol 3350 17 17 g PO DAILY 07/05/22 09/25/23 Unknown History gram/dose oral powder (Miralax) sodium chloride 1 gram tablet 1,000 mg PO TID 07/05/22 09/25/23 Unknown History sodium phosphates 19 gram-7 118 ml [place] DAILY PRN Constipation 07/05/22 09/25/23 Unknown History gram/118 mL enema (Fleet Enema) carbamazepine 400 mg 400 mg PO DAILY 09/25/23 09/25/23 Unknown History tablet,extended release,12 hr lorazepam 2 mg/mL injection 2 mg IV Q5M PRN Ongoing Seizure 09/25/23 09/25/23 Unknown History solution Activity omeprazole 20 mg capsule,delayed 20 mg PO DAILY@0630 09/25/23 09/25/23 Unknown History release sennosides 8.6 mg tablet (senna) 8.6 mg PO BID 09/25/23 09/25/23 Unknown History Physical Exam Vital Signs and Narrative: Vital Signs: Last Vital Signs Temp 98.0 F 09/25/23 18:47 Pulse 93 09/25/23 19:44 Resp 18 09/25/23 19:44 BP 102/78 09/25/23 19:44 Pulse Ox 99 09/25/23 19:44 O2 Del Method Room Air 09/25/23 19:44 BMI result Body Mass Index 27.1 Results Labs 09/25/23 12:55 09/25/23 12:55 Labs: Laboratory Results - last 24 hr 09/25/23 09/25/23 09/25/23 12:55 13:01 13:14 MCV 96.0 MCH 33.6 H MCHC 35.0 RDW 11.9 Plt Count 72 L MPV 9.8 Immature Gran % (Auto) 0.2 Neut % (Auto) 67.1 Lymph % (Auto) 22.4 [place] % (Auto) 8.4 Eos % (Auto) 1.7 Baso % (Auto) 0.2 Lymph # (Auto) 0.9 L [place] # (Auto) 0.4 Eos # (Auto) 0.1 Baso # (Auto) 0.0 Abs Immat Gran (auto) 0.01 Absolute Neuts (auto) 2.8 Absolute Nucleated RBC 0.000 Nucleated RBC % (auto) 0.0 VBG pH VBG pCO2 VBG pO2 VBG HCO3 VBG O2 Saturation VBG Base Excess Anion Gap 14 Estim Creat Clear Calc 102.9 Estimated GFR > 60 Random Glucose 101 Lactic Acid 1.5 Calcium 9.7 Total Bilirubin 0.5 Direct Bilirubin 0.2 AST 44 H ALT 51 H Alkaline Phosphatase 96 Ammonia Troponin I High Sens 5.2 Total Protein 8.5 H Albumin 4.5 Procalcitonin 0.02 Urine Color Dark Yellow Urine Appearance Cloudy Urine pH 6.0 Ur Specific [place] >= 1.030 H Urine Protein 100 (2+) H Urine Glucose (UA) Negative Urine Ketones >=160 Urine Blood Large (3+) H Urine Nitrite Negative Ur Leukocyte Esterase Negative Urine RBC >20 H Urine WBC 0-5 Ur Squamous Epith Cells 3-5 Urine Bacteria None Seen Hyaline Casts 3-5 Influenza Type A (PCR) NEGATIVE Influenza Type B (PCR) NEGATIVE RSV RNA Qual (PCR) NEGATIVE SARS-CoV-2 RNA (RT-PCR) NEGATIVE 09/25/23 09/25/23 14:37 18:47 MCV MCH MCHC RDW Plt Count MPV Immature Gran % (Auto) Neut % (Auto) Lymph % (Auto) [place] % (Auto) Eos % (Auto) Baso % (Auto) Lymph # (Auto) [place] # (Auto) Eos # (Auto) Baso # (Auto) Abs Immat Gran (auto) Absolute Neuts (auto) Absolute Nucleated RBC Nucleated RBC % (auto) VBG pH 7.43 VBG pCO2 27 VBG pO2 216 VBG HCO3 18 L VBG O2 Saturation 100.0 VBG Base Excess -4.7 Anion Gap Estim Creat Clear Calc Estimated GFR Random Glucose Lactic Acid Calcium Total Bilirubin Direct Bilirubin AST ALT Alkaline Phosphatase Ammonia 23 Troponin I High Sens Total Protein Albumin Procalcitonin Urine Color Urine Appearance Urine pH Ur Specific [place] Urine Protein Urine Glucose (UA) Urine Ketones Urine Blood Urine Nitrite Ur Leukocyte Esterase Urine RBC Urine WBC Ur Squamous Epith Cells Urine Bacteria Hyaline Casts Influenza Type A (PCR) Influenza Type B (PCR) RSV RNA Qual (PCR) SARS-CoV-2 RNA (RT-PCR) Imaging Radiologist's Impressions: Impressions Chest X-Ray 09/25/23 13:40 IMPRESSION: No acute cardiopulmonary disease. Head CT 09/25/23 16:59 IMPRESSION: 1. Limited study. 2. No large acute hemorrhage. 3. There is some low-attenuation on the left with at least a small calcification. No convincing mass effect. This could be a sequelae from previous trauma or infarct but is nonspecific. Direct comparison with any previous studies would be helpful. If there are no previous and patient condition allows, repeat should be considered Assessment and Plan (1) AMS (altered mental status): Status: Acute (2) Sepsis: Status: Acute Plan 53-year-old male with frontal temporal dementia, blindness, HIV on HAART therapy, history of CVA, esophagitis/GERD, pulmonary fibrosis, chronic hyponatremia, unspecified epilepsy, history of substance abuse, history of unspecified GI cancer, who has a history of recurrent aspiration on regular texture diet/thin liquids admitted for fever of unclear origin but with suspected aspiration #Fever of unclear origin with suspected evolving aspiration pneumonia with severe sepsis -febrile to 101.9, tachycardic, tachypneic. No lactic acidosis. Baseline platelets unavailable but possibly acute thrombocytopenia (met severe sepsis at 1255). Blood cultures pending -CXR negative for pneumonia. Chest CT ordered -Cover empirically with iv zosyn and vanco given immunosuppression (initiated 09/24) -Keep NPO pending [employer] eval (hx aspiration, but on regular texture/thin liquids at [facility]) -received 4 L IVF in the ED. Will continue gentle LR given patient is NPO -ID consult -follow CBC, cultures # acute metabolic encephalopathy -due to infection. See above -head CT negative for acute intracranial abnormality. Does have history of frontotemporal dementia and TBI but is oriented x3 with some memory impairment at baseline -monitor mentation # HIV -called [facility] for last viral load and CD4 count, awaiting call back -continue HAART therapy -ID consult # frontotemporal dementia, history TBI with mood disturbance -see above -continue lorazepam, Tegretol # unspecified epileptic disorder -continue Keppra, Tegretol DVT prophylaxis-Lovenox DNR/DNI per [facility] facility paperwork Patient requires inpatient stay at least 2 midnights for management of acute metabolic encephalopathy and fever of unclear origin but with suspected evolving aspiration pneumonia with severe sepsis requiring broad-spectrum IV antibiotics, expert consultation and close monitoring of hemodynamics to monitor for and prevent decompensation Quality Stroke Does the patient have a stroke diagnosis?: No VTE Prior VTE?: No VTE Risk Level:: Medical - moderate - high VTE Device Contraindication: Treatment Not Indicated VTE Drug Contraindication: N/A - Med Ordered
--- NOTE | 2023-09-25 20:03 | PHA.PROG ---
Admission Date/Time: September 25, 2023 19:51 Indication: Respiratory Weight in k.718 kg Adjusted body weight in Kg: [place] body weight in Kg: Obesity Dosing Indication % IBW: Serum Creatinine - Last 168 Hours 09/25/23 12:55 Creatinine 0.89 Estimated CrCl and GFR - Last 168 Hours 09/25/23 12:55 Estim Creat Clear Calc 102.9 Estimated GFR > 60 Vancomycin Loading Dose: 2000mg x 1 Current Vancomycin Dosing Regimen: 1250mg Q12H Vancomycin Monitoring using AUC goal of 400 - 600 range with trough as surrogate marker: 550mg/L Date and Time for next Vancomycin Level to be drawn: 09/26/23 @2100 Pharmacist Comments on Vancomycin Plan: Predicted trough of 17.3mg/L; will continue to monitor and adjust Vancomycin dosing will take advantage of [employer] as a clinical decision support tool that uses Bayesian modeling to calculate individual patient's pharmacokinetic parameters and forecast the patient's drug concentration time course with the target goal AUC 24 range of 400 - 600 mg/L/hr.
[2023-09-25] MEDS: Enoxaparin Sodium 40 MG/0.4 ML SYRINGE SUBCUT (21:33)
[2023-09-25] MEDS: levETIRAcetam 1,000 MG TABLET 1000 MG PO ×2 (21:33→22:38)
[2023-09-25] MEDS: Piperacillin Sodium/Tazobactam 4.5 GM in 0.9 % Sodium Chloride 100 ML IV (21:33)
--- NOTE | 2023-09-25 21:40 | PHA.MEDREC ---
Addendum entered by Bassem Leal [facility] 09/25/23 22:16: med rec double checked Original Note: Pharmacy Consult ? Medication Reconciliation Pharmacy has completed the medication reconciliation. Confirmed Med Rec with list provided by Sri at [facility].
--- NOTE | 2023-09-25 22:20 | MHC.EDTECH ---
Pt changed over into clean hospital gown and a pull up put on pt. Pt bed changed with clean linen
[2023-09-25] MEDS: Lactated Ringers 1,000 ML 80 ML IVCONT (22:32)
[2023-09-25] MEDS: 0.9 % Sodium Chloride Flush 3 ML SYRINGE IVFLUSH (22:35)
[2023-09-25] MEDS: carBAMazepine ER 100 MG TAB.ER.12H 300 MG PO (22:36)
[2023-09-25] MEDS: vancomycin HCL 1,250 MG in 0.9 % Sodium Chloride 250 ML 166.67 MG IV (22:59)
--- NOTE | 2023-09-25 23:05 | PC.NURSE ---
Report given to Dwayne COFFEY pt exits my care at this time.
[2023-09-25] MEDS: Loperamide HCl 2 MG CAPSULE 4 MG PO (23:43)
[2023-09-25] MEDS: LORazepam 2 MG/ML VIAL IV (23:44)
--- NOTE | 2023-09-26 00:01 | PC.NURSE ---
pt restless and agitated; attempting to swing at this RN and EDT, trying to get out of bed. Dr Malave present. Lorazepam 2mg IV administered for agitation per Dr Malave - order in [facility] is for ongoing seizure activity, Dr Malave at bedside and rpts to give it for agitation. Ativan given with good effect.
[2023-09-26 01:11] VITALS: BP 105/58; PULSE 108; RESP 17; TEMP 37.3; O2SAT 95
[2023-09-26] MEDS: Piperacillin Sodium/Tazobactam 4.5 GM in 0.9 % Sodium Chloride 100 ML IV ×4 (01:28→20:25)
[2023-09-26 05:12] LABS: MANUAL DIFF FLAG NO
[2023-09-26 05:18] LABS: Eosinophils Absolute Auto 0.1 X10*3/uL (0.0-0.4); Eosinophils Percent Auto 2.4 % (0-4); Hematocrit 31.9 % (42.0-52.0); Hemoglobin 11.4 g/dl (14.0-18.0); Imm Gran Abs Auto 0.01 X10*3/uL (0.00-0.03); Imm Gran Pct Auto 0.3 % (0.0-0.4); Lymphocytes Absolute Auto 0.6 X10*3/uL (1.2-4.9); Lymphocytes Percent Auto 21.3 % (20-40); Mean Corpuscular HGB Conc 35.7 g/dl (31.0-36.0); Mean Corpuscular Hemoglobin 33.6 pg (27.0-33.0); Mean Corpuscular Volume 94.1 fL (80.0-98.0); Mean Platelet Volume 9.8 fL (9.4-12.4); Monocytes Absolute Auto 0.3 X10*3/uL (0.1-1.2); Monocytes Percent Auto 11.1 % (2-11); Neutrophils Absolute Auto 1.9 x10*3/uL (2.0-8.3); Neutrophils Percent Auto 64.9 % (45-73); Red Blood Count 3.39 X10*6/uL (4.60-5.80); Red Cell Distribution Width 11.6 % (11.0-16.0); White Blood Count 2.9 X10*3/uL (4.8-10.8)
[2023-09-26 05:22] LABS: Platelet Count 63 X10*3/uL (160-400)
[2023-09-26 05:33] LABS: Anion Gap 16 (12-20); Blood Urea Nitrogen 7 mg/dL (9-16); Calcium 7.7 mg/dL (8.4-10.2); Carbon Dioxide 17 mmol/L (22-29); Chloride 112 mmol/L (96-108); Creatinine Clr Calc Pharmacy 140.9; Estimated Glomerular Filt Rate > 60; Glucose Random 94 mg/dL (60-115); Potassium 2.9 mmol/L (3.3-5.1); Sodium 142 mmol/L (135-145)
[2023-09-26] MEDS: Potassium Chloride/H20 10 MEQ/100 ML PIGGYBACK 100 MEQ IV ×4 (06:08→10:46)
--- NOTE | 2023-09-26 06:11 | PC.NURSE ---
pt not awake enough to take PO med at this time - PO omeprazole held. IV potassium bag of is running.
[2023-09-26 06:51] VITALS: BP 102/80; PULSE 107; RESP 22; O2SAT 97
[2023-09-26 08:26] LABS: Magnesium 1.9 mg/dL (1.6-2.6)
[2023-09-26 09:11] VITALS: BP 108/75; PULSE 107; RESP 17; O2SAT 96
[2023-09-26 09:22] VITALS: BMI 22.6
--- NOTE | 2023-09-26 09:32 | PC.NURSE ---
Limited admission information provided as pt has altered mental status and is unaccompanied
[2023-09-26] MEDS: carBAMazepine ER 200 MG TAB.ER.12H 400 MG PO (11:09)
[2023-09-26] MEDS: Lurasidone HCl 80 MG TABLET PO (11:09)
[2023-09-26] MEDS: Metoprolol Succinate ER 25 MG TAB.ER.24H PO ×2 (11:10→20:19)
[2023-09-26] MEDS: levETIRAcetam 1,000 MG TABLET 2000 MG PO ×2 (11:10→20:03)
[2023-09-26] MEDS: Sennosides 8.6 MG TABLET PO ×2 (11:10→21:00)
[2023-09-26] MEDS: polyethylene glycoL 3350 17 GM POWD.PACK PO (11:10)
--- NOTE | 2023-09-26 11:23 | MHC.CM.PN ---
PT FROM [facility] WHERE HE WILL RETURN WHEN DCD
[2023-09-26] MEDS: vancomycin HCL 1,250 MG in 0.9 % Sodium Chloride 250 ML 166.67 MG IV ×2 (12:04→22:52)
--- NOTE | 2023-09-26 12:48 | HO.PM.IMPN ---
Subjective Subjective Date of Service: 09/26/23 Interval History: fuo Review of Systems no new fevers last night menatal status seems near baseline ( will clearfy with NH) Physical Exam Vital Signs: Vital Signs: Last Vital Signs Temp 99.1 F 09/26/23 01:11 Pulse 107 H 09/26/23 09:11 Resp 17 09/26/23 09:11 BP 108/75 09/26/23 09:11 Pulse Ox 96 09/26/23 09:11 O2 Del Method Room Air 09/26/23 09:11 BMI result Body Mass Index 22.6 Appearance: Alert,awake ,little upset cvs: rrr, [id number] . res: clear to auscultation ,no rhonchii or wheezing abd: no rebound or guarding ,nt, bs present. ext pulses present , no cyanosis . neuro: moves all ext. Objective Data Active Medications Acetaminophen (Acetaminophen 325 Mg Tablet) 650 mg PO Q6H PRN PRN Reason: Pain, Mild (Pain Scale 1-3), fever or headache Acetaminophen (Acetaminophen 325 Mg Tablet) 650 mg PO Q6H PRN PRN Reason: Fever/Pain Calcium Carbonate (Calcium Carbonate 750 Mg Tab.Chew) 750 mg PO Q4H PRN PRN Reason: Heartburn Carbamazepine (Carbamazepine Er 100 Mg Tab.Er.12h) 300 mg PO BEDTIME [facility] Last Admin: 09/25/23 22:36 Dose: 300 mg Documented By: RENETTA Carbamazepine (Carbamazepine Er 200 Mg Tab.Er.12h) 400 mg PO DAILY [facility] Last Admin: 09/26/23 11:09 Dose: 400 mg Documented By: LALY Enoxaparin Sodium (Enoxaparin Sodium 40 Mg/0.4 Ml Syringe) 40 mg SUBCUT Q24H [facility] Last Admin: 09/25/23 21:33 Dose: 40 mg Documented By: RENETTA Lactated Ringer's (Lr) 1,000 mls @ 80 mls/hr IVCONT .[id number] [facility] Last Admin: 09/26/23 10:55 Dose: Not Given Documented By: LALY Non-Admin Reason: IV Running Piperacillin Sod/Tazobactam (Sod 4.5 gm/ Sodium Chloride) 100 mls @ 200 mls/hr IV Q6H [facility] Last Infusion: 09/26/23 08:19 Dose: Infused Documented By: STEPHANIA Vancomycin HCl 1,250 mg/ (Sodium Chloride) 250 mls @ 166.667 mls/hr IV Q12H [facility] Last Admin: 09/26/23 12:04 Dose: 166.67 mls/hr Documented By: LALY Levetiracetam (Levetiracetam 1,000 Mg Tablet) 2,000 mg PO BID [facility] Last Admin: 09/26/23 11:10 Dose: 2,000 mg Documented By: LALY Loperamide HCl (Loperamide Hcl 2 Mg Capsule) 4 mg PO DAILY PRN PRN Reason: Loose Stool Last Admin: 09/25/23 23:43 Dose: 4 mg Documented By: JUVENCIO Lorazepam (Lorazepam 2 Mg/Ml Vial) 2 mg IV Q5M PRN PRN Reason: Ongoing Seizure Activity Last Admin: 09/25/23 23:44 Dose: 2 mg Documented By: JUVENCIO Lurasidone HCl (Lurasidone Hcl 80 Mg Tablet) 80 mg PO DAILY [facility] Last Admin: 09/26/23 11:09 Dose: 80 mg Documented By: LALY Magnesium Hydroxide (Milk Of Magnesia 30 Ml Oral.Susp) 30 ml PO DAILY PRN PRN Reason: Constipation Melatonin (Melatonin 3 Mg Tablet) 6 mg PO BEDTIME PRN PRN Reason: Insomnia Metoprolol Succinate (Metoprolol Succinate Er 25 Mg Tab.Er.24h) 25 mg PO BID [facility]; Protocol Last Admin: 09/26/23 11:10 Dose: 25 mg Documented By: LALY Omeprazole (Omeprazole 20 Mg Capsule.Dr) 20 mg PO DAILY@0630 [facility] Last Admin: 09/26/23 06:10 Dose: Not Given Documented By: JUVENCIO Non-Admin Reason: Patient Asleep Pharmacy Consult (Consult Rx Vancomycin Dosing) 1 each MISCELLANE DAILY PRN PRN Reason: Consult order Polyethylene Glycol (Polyethylene Glycol 3350 17 Gm Powd.Pack) 17 gm PO DAILY [facility] Last Admin: 09/26/23 11:10 Dose: 17 gm Documented By: LALY Senna (Sennosides 8.6 Mg Tablet) 8.6 mg PO BID [facility] Last Admin: 09/26/23 11:10 Dose: 8.6 mg Documented By: LALY Senna (Sennosides 8.6 Mg Tablet) 8.6 mg PO DAILY PRN PRN Reason: Constipation Sodium Biphosphate/Sodium Phosphate (Sodium Phosphate,[place]-Dibasic 133 Ml Enema) 118 ml [place] DAILY PRN PRN Reason: Constipation Sodium Chloride (0.9 % Sodium Chloride Flush 3 Ml Syringe) 3 ml IVFLUSH QSHIFT [facility] Last Admin: 09/26/23 07:48 Dose: Not Given Documented By: STEPHANIA Non-Admin Reason: IV Running Sodium Chloride (Sodium Chloride Tab 1 Gm Tablet) 1,000 gm PO TID [facility] Last Admin: 09/26/23 11:34 Dose: Not Given Documented By: LALY Non-Admin Reason: Med Not Available Labs 09/26/23 04:50 09/26/23 04:50 Labs: Laboratory Results - last 24 hr 09/25/23 09/25/23 09/25/23 12:55 13:01 13:14 MCV 96.0 MCH 33.6 H MCHC 35.0 RDW 11.9 Plt Count 72 L MPV 9.8 Immature Gran % (Auto) 0.2 Neut % (Auto) 67.1 Lymph % (Auto) 22.4 [place] % (Auto) 8.4 Eos % (Auto) 1.7 Baso % (Auto) 0.2 Lymph # (Auto) 0.9 L [place] # (Auto) 0.4 Eos # (Auto) 0.1 Baso # (Auto) 0.0 Abs Immat Gran (auto) 0.01 Absolute Neuts (auto) 2.8 Absolute Nucleated RBC 0.000 Nucleated RBC % (auto) 0.0 VBG pH VBG pCO2 VBG pO2 VBG HCO3 VBG O2 Saturation VBG Base Excess Anion Gap 14 Estim Creat Clear Calc 102.9 Estimated GFR > 60 Random Glucose 101 Lactic Acid 1.5 Calcium 9.7 Magnesium Total Bilirubin 0.5 Direct Bilirubin 0.2 AST 44 H ALT 51 H Alkaline Phosphatase 96 Ammonia Troponin I High Sens 5.2 Total Protein 8.5 H Albumin 4.5 Procalcitonin 0.02 Urine Color Dark Yellow Urine Appearance Cloudy Urine pH 6.0 Ur Specific Hunters >= 1.030 H Urine Protein 100 (2+) H Urine Glucose (UA) Negative Urine Ketones >=160 Urine Blood Large (3+) H Urine Nitrite Negative Ur Leukocyte Esterase Negative Urine RBC >20 H Urine WBC 0-5 Ur Squamous Epith Cells 3-5 Urine Bacteria None Seen Hyaline Casts 3-5 Influenza Type A (PCR) NEGATIVE Influenza Type B (PCR) NEGATIVE RSV RNA Qual (PCR) NEGATIVE SARS-CoV-2 RNA (RT-PCR) NEGATIVE 09/25/23 09/25/23 09/26/23 14:37 18:47 04:50 MCV 94.1 MCH 33.6 H MCHC 35.7 RDW 11.6 Plt Count 63 L MPV 9.8 Immature Gran % (Auto) 0.3 Neut % (Auto) 64.9 Lymph % (Auto) 21.3 [place] % (Auto) 11.1 H Eos % (Auto) 2.4 Baso % (Auto) 0.0 Lymph # (Auto) 0.6 L [place] # (Auto) 0.3 Eos # (Auto) 0.1 Baso # (Auto) 0.0 Abs Immat Gran (auto) 0.01 Absolute Neuts (auto) 1.9 L Absolute Nucleated RBC 0.000 Nucleated RBC % (auto) 0.0 VBG pH 7.43 VBG pCO2 27 VBG pO2 216 VBG HCO3 18 L VBG O2 Saturation 100.0 VBG Base Excess -4.7 Anion Gap 16 Estim Creat Clear Calc 140.9 Estimated GFR > 60 Random Glucose 94 Lactic Acid Calcium 7.7 L D Magnesium 1.9 Total Bilirubin Direct Bilirubin AST ALT Alkaline Phosphatase Ammonia 23 Troponin I High Sens Total Protein Albumin Procalcitonin Urine Color Urine Appearance Urine pH Ur Specific Hunters Urine Protein Urine Glucose (UA) Urine Ketones Urine Blood Urine Nitrite Ur Leukocyte Esterase Urine RBC Urine WBC Ur Squamous Epith Cells Urine Bacteria Hyaline Casts Influenza Type A (PCR) Influenza Type B (PCR) RSV RNA Qual (PCR) SARS-CoV-2 RNA (RT-PCR) Assessment and Plan (1) AMS (altered mental status): Status: Acute (2) Sepsis: Status: Acute Assessment and Plan: 53-year-old male with frontal temporal dementia, blindness, HIV on HAART therapy, history of CVA, esophagitis/GERD, pulmonary fibrosis, chronic hyponatremia, unspecified epilepsy, history of substance abuse, history of unspecified GI cancer, who has a history of recurrent aspiration on regular texture diet/thin liquids admitted for fever of unclear origin but with suspected aspiration Fuo with suspected evolving aspiration pneumonia with severe sepsis Lactic acid normal, Blood cultures pending -CXR negative for pneumonia. Chest CT -no pneumonia -Cover empirically with iv zosyn and vanco given immunosuppression (initiated 09/24) -Keep NPO pending [employer]ER eval (hx aspiration, but on regular texture/thin liquids at [facility]) -received 4 L IVF in the ED. Will continue gentle LR given patient is NPO -ID consult -follow CBC, cultures acute metabolic encephalopathy -due to infection. See above -head CT negative for acute intracranial abnormality. Does have history of frontotemporal dementia and TBI but is oriented x3 with some memory impairment at baseline -monitor mentation HIV-called [facility] for last viral load and CD4 count, awaiting call back continue HAART therapy and ID consult frontotemporal dementia, history TBI with mood disturbance -see above -continue lorazepam, Tegretol unspecified epileptic disorder -continue Keppra, Tegretol DVT prophylaxis-Lovenox DNR/DNI per [facility] facility paperwork ongoing need of acute metabolic encephalopathy and fever of unclear origin but with suspected evolving aspiration pneumonia with severe sepsis requiring broad-spectrum IV antibiotics, expert consultation and close monitoring of hemodynamics to monitor for and prevent decompensation Quality Stroke Does the patient have a stroke diagnosis?: No VTE Prior VTE?: No VTE Risk Level:: Medical - moderate - high VTE Device Contraindication: Treatment Not Indicated VTE Drug Contraindication: N/A - Med Ordered
[2023-09-26 15:26] VITALS: BP 129/79; PULSE 128; RESP 18; TEMP 37; O2SAT 98
[2023-09-26] MEDS: Magnesium Sulfate/D5W 1 GM/100 ML PIGGYBACK IV (17:41)
[2023-09-26 19:18] VITALS: BP 135/74; PULSE 116; RESP 18; TEMP 37.1; O2SAT 92
[2023-09-26] MEDS: Enoxaparin Sodium 40 MG/0.4 ML SYRINGE SUBCUT (20:03)
[2023-09-26 20:19] VITALS: BP 135/74; PULSE 116
[2023-09-26] MEDS: carBAMazepine ER 100 MG TAB.ER.12H 300 MG PO (20:21)
[2023-09-26 21:31] LABS: Vancomycin Random 15.2 mcg/mL (15-20)
[2023-09-26] MEDS: Lactated Ringers 1,000 ML 80 ML IVCONT (22:51)
[2023-09-26] MEDS: 0.9 % Sodium Chloride Flush 3 ML SYRINGE IVFLUSH (22:53)
[2023-09-27] MEDS: Piperacillin Sodium/Tazobactam 4.5 GM in 0.9 % Sodium Chloride 100 ML IV ×4 (01:27→19:27)
[2023-09-27 03:38] VITALS: BP 118/79; PULSE 101; RESP 18; TEMP 36; O2SAT 96
[2023-09-27] MEDS: Omeprazole 20 MG CAPSULE.DR PO (05:44)
[2023-09-27 06:49] LABS: Creatinine Clr Calc Pharmacy 111.4; Estimated Glomerular Filt Rate > 60
[2023-09-27 07:16] LABS: Potassium 3.3 mmol/L (3.3-5.1)
[2023-09-27 07:48] VITALS: BP 128/73; PULSE 95; RESP 18; TEMP 36.7; O2SAT 98
[2023-09-27] MEDS: polyethylene glycoL 3350 17 GM POWD.PACK PO (09:10)
[2023-09-27] MEDS: Lurasidone HCl 80 MG TABLET PO (10:15)
[2023-09-27] MEDS: Metoprolol Succinate ER 25 MG TAB.ER.24H PO ×2 (10:15→21:20)
[2023-09-27] MEDS: levETIRAcetam 1,000 MG TABLET 2000 MG PO ×2 (10:16→21:20)
[2023-09-27] MEDS: carBAMazepine ER 200 MG TAB.ER.12H 400 MG PO (10:16)
[2023-09-27] MEDS: Sennosides 8.6 MG TABLET PO ×2 (10:16→21:21)
[2023-09-27] MEDS: Sodium Chloride Tab 1 GM TABLET PO ×3 (11:29→21:21)
[2023-09-27] MEDS: vancomycin HCL 1,250 MG in 0.9 % Sodium Chloride 250 ML 166.67 MG IV (11:32)
--- NOTE | 2023-09-27 13:12 | W.PM.IDCN ---
History of Present Illness Data of Consult Service Date: 09/27/23 Requesting physician: Denver Scott Primary Care Provider: DO YVONNE Oakes Reason for consult: sepsis,aspiration pneumonia He presents from [facility] with altered mental status and tachycardia to 120s with temperature 102. He has CT scan basilar atelectasis He is on room air at this time. He was started on piperacillin/tazobactam and Vancomycin He was reported to have HIV but dont see medication. Review of Systems Review of Systems: Yes all other systems are reviewed and are negative [facility] Past Medical History Medical History Pulmonary fibrosis History of substance use Gastritis Esophagitis History of CVA (cerebrovascular accident) Frontotemporal dementia Cancer HIV (human immunodeficiency virus infection) History of traumatic head injury Seizures Lung granuloma Family History Family history: reviewed and not pertinent Surgical History Surgical History Hx of colonoscopy History of esophagogastroduodenoscopy (EGD) Hx of appendectomy Social History Social History Household Members: Other Household Members Other:: [facility] Housing: Long-Term Patient Tobacco Use Status: Former Tobacco user service: No Meds Allergies Allergy/AdvReac Type Severity Reaction Status Date / Time No Known Allergies Allergy Unverified 09/25/23 12:45 Active Medications: Current Medications Acetaminophen (Acetaminophen 325 Mg Tablet) 650 mg PO Q6H PRN PRN Reason: Pain, Mild (Pain Scale 1-3), fever or headache Acetaminophen (Acetaminophen 325 Mg Tablet) 650 mg PO Q6H PRN PRN Reason: Fever/Pain Calcium Carbonate (Calcium Carbonate 750 Mg Tab.Chew) 750 mg PO Q4H PRN PRN Reason: Heartburn Carbamazepine (Carbamazepine Er 100 Mg Tab.Er.12h) 300 mg PO BEDTIME [facility] Last Admin: 09/26/23 20:21 Dose: 300 mg Carbamazepine (Carbamazepine Er 200 Mg Tab.Er.12h) 400 mg PO DAILY [facility] Last Admin: 09/27/23 10:16 Dose: 400 mg Enoxaparin Sodium (Enoxaparin Sodium 40 Mg/0.4 Ml Syringe) 40 mg SUBCUT Q24H [facility] Last Admin: 09/26/23 20:03 Dose: 40 mg Lactated Ringer's (Lr) 1,000 mls @ 80 mls/hr IVCONT .[id number] [facility] Last Admin: 09/27/23 10:36 Dose: Not Given Piperacillin Sod/Tazobactam (Sod 4.5 gm/ Sodium Chloride) 100 mls @ 200 mls/hr IV Q6H [facility] Last Infusion: 09/27/23 09:40 Dose: Infused Vancomycin HCl 1,250 mg/ (Sodium Chloride) 250 mls @ 166.667 mls/hr IV Q12H [facility] Last Admin: 09/27/23 11:32 Dose: 166.67 mls/hr Levetiracetam (Levetiracetam 1,000 Mg Tablet) 2,000 mg PO BID [facility] Last Admin: 09/27/23 10:16 Dose: 2,000 mg Loperamide HCl (Loperamide Hcl 2 Mg Capsule) 4 mg PO DAILY PRN PRN Reason: Loose Stool Last Admin: 09/25/23 23:43 Dose: 4 mg Lorazepam (Lorazepam 2 Mg/Ml Vial) 2 mg IV Q5M PRN PRN Reason: Ongoing Seizure Activity Last Admin: 09/25/23 23:44 Dose: 2 mg Lurasidone HCl (Lurasidone Hcl 80 Mg Tablet) 80 mg PO DAILY [facility] Last Admin: 09/27/23 10:15 Dose: 80 mg Magnesium Hydroxide (Milk Of Magnesia 30 Ml Oral.Susp) 30 ml PO DAILY PRN PRN Reason: Constipation Melatonin (Melatonin 3 Mg Tablet) 6 mg PO BEDTIME PRN PRN Reason: Insomnia Metoprolol Succinate (Metoprolol Succinate Er 25 Mg Tab.Er.24h) 25 mg PO BID [facility]; Protocol Last Admin: 09/27/23 10:15 Dose: 25 mg Omeprazole (Omeprazole 20 Mg Capsule.Dr) 20 mg PO DAILY@0630 [facility] Last Admin: 09/27/23 05:44 Dose: 20 mg Pharmacy Consult (Consult Rx Vancomycin Dosing) 1 each MISCELLANE DAILY PRN PRN Reason: Consult order Polyethylene Glycol (Polyethylene Glycol 3350 17 Gm Powd.Pack) 17 gm PO DAILY [facility] Last Admin: 09/27/23 09:10 Dose: 17 gm Senna (Sennosides 8.6 Mg Tablet) 8.6 mg PO BID [facility] Last Admin: 09/27/23 10:16 Dose: 8.6 mg Senna (Sennosides 8.6 Mg Tablet) 8.6 mg PO DAILY PRN PRN Reason: Constipation Sodium Biphosphate/Sodium Phosphate (Sodium Phosphate,[place]-Dibasic 133 Ml Enema) 118 ml [place] DAILY PRN PRN Reason: Constipation Sodium Chloride (0.9 % Sodium Chloride Flush 3 Ml Syringe) 3 ml IVFLUSH QSHIFT [facility] Last Admin: 09/27/23 07:15 Dose: Not Given Sodium Chloride (Sodium Chloride Tab 1 Gm Tablet) 1 gm PO TID [facility] Last Admin: 09/27/23 11:29 Dose: 1 gm Home Medications ?Medication ?Instructions ?Recorded ?Confirmed ?Last Taken ?Type acetaminophen 325 mg capsule 650 mg PO Q6H PRN Fever/Pain 07/05/22 09/25/23 Unknown History carbamazepine 100 mg 300 mg PO BEDTIME 07/05/22 09/25/23 Unknown History capsule,extended release [id number] levetiracetam 1,000 mg tablet 2,000 mg PO BID 07/05/22 09/25/23 Unknown History (Keppra) loperamide 2 mg capsule See Rx Instructions .Route 07/05/22 09/25/23 Unknown History .COMPLEX PRN Loose Stool lurasidone 80 mg tablet (Latuda) 80 mg PO DAILY 07/05/22 09/25/23 Unknown History metoprolol succinate 25 mg 25 mg PO BID 07/05/22 09/25/23 Unknown History tablet,extended release 24 hr polyethylene glycol 3350 17 17 g PO DAILY 07/05/22 09/25/23 Unknown History gram/dose oral powder (Miralax) sodium chloride 1 gram tablet 1,000 mg PO TID 07/05/22 09/25/23 Unknown History sodium phosphates 19 gram-7 118 ml [place] DAILY PRN Constipation 07/05/22 09/25/23 Unknown History gram/118 mL enema (Fleet Enema) carbamazepine 400 mg 400 mg PO DAILY 09/25/23 09/25/23 Unknown History tablet,extended release,12 hr lorazepam 2 mg/mL injection 2 mg IV Q5M PRN Ongoing Seizure 09/25/23 09/25/23 Unknown History solution Activity omeprazole 20 mg capsule,delayed 20 mg PO DAILY@0630 09/25/23 09/25/23 Unknown History release sennosides 8.6 mg tablet (senna) 8.6 mg PO BID 09/25/23 09/25/23 Unknown History Physical Exam Vital Signs: Vital Signs: Last Vital Signs Temp 98.1 F 09/27/23 07:48 Pulse 95 09/27/23 07:48 Resp 18 09/27/23 07:48 BP 128/73 09/27/23 07:48 Pulse Ox 98 09/27/23 07:48 O2 Del Method Room Air 09/27/23 07:48 BMI result Body Mass Index 22.6 Const: General: cooperative HEENT: Head: Yes normal to inspection Face and sinus: Yes normal facial exam Mouth: Normal oral and palatal mucosa present Teeth and gingiva: dentition normal Eyes: General: appearance normal, both eyes and all related structures Pupils: Equal, round and reactive pupils present Resp: Effort & Inspection: normal respiratory effort Cardio: Rate: regular rate Rhythm: regular rhythm GI: Palpation (GI): Soft to palpation and nontender : General: Yes no CVA tenderness Back/Spine/Pelvis: Back: no CVA tenderness Skin: General skin exam: no rashes or lesions noted Neuro: General: moves all extremities Cranial nerves: Yes Equal, round and reactive pupils present Extrem: General: Yes normal to inspection Psych: Other: confuses Appearance: grossly normal Results Labs 09/26/23 04:50 09/27/23 06:26 Labs: BMP 09/27/23 06:26 Potassium 3.3 Creatinine 0.80 Microbiology Microbiology Results: Microbiology 09/25/23 13:01 Blood - Venous Blood Culture - Preliminary No growth after 24 hours. 09/25/23 12:55 Blood - Venous Blood Culture - Preliminary No growth after 24 hours. Assessment and Plan (1) AMS (altered mental status): Status: Acute (2) Sepsis: Status: Acute Plan He has aspiration pneumonia. There is possible staph or MRSA or gram negative. He has sepsis with gram negative or gram positive possible. Would continue Vancomycin and Zosyn prob 3-5 days Await blood culture. He needs his HIV medication so will find out what it is and continue it.
--- NOTE | 2023-09-27 14:03 | MHC.CM.PN ---
EMR reviewed and per MD rounds, pt is not medically cleared for discharge due to management of sepsis, with blood cultures pending.
[2023-09-27] MEDS: Lactated Ringers 1,000 ML 80 ML IVCONT (14:24)
[2023-09-27 15:01] VITALS: BP 111/67; PULSE 92; RESP 20; TEMP 36.7; O2SAT 96
--- NOTE | 2023-09-27 15:34 | MHC.SLORD ---
Speech Language Pathology Order Status: Pt unavailable when SPINE NURSE attempted to see pt; bathroom needs and changing rooms. SPINE NURSE to visit pt tomorrow to monitor toleration of diet and upgrade if/when warranted.
--- NOTE | 2023-09-27 15:42 | HO.PM.IMPN ---
Subjective Subjective Date of Service: 09/27/23 Interval History: fuo Review of Systems no new fever seems near his baseline Physical Exam Vital Signs: Vital Signs: Last Vital Signs Temp 98.1 F 09/27/23 15:01 Pulse 92 09/27/23 15:01 Resp 20 09/27/23 15:01 BP 111/67 09/27/23 15:01 Pulse Ox 96 09/27/23 15:01 O2 Del Method Room Air 09/27/23 15:01 BMI result Body Mass Index 22.6 Appearance: Alert,awake ,little upset cvs: rrr, [id number] . res: clear to auscultation ,no rhonchii or wheezing abd: no rebound or guarding ,nt, bs present. ext pulses present , no cyanosis . neuro: moves all ext. Objective Data Active Medications Acetaminophen (Acetaminophen 325 Mg Tablet) 650 mg PO Q6H PRN PRN Reason: Pain, Mild (Pain Scale 1-3), fever or headache Acetaminophen (Acetaminophen 325 Mg Tablet) 650 mg PO Q6H PRN PRN Reason: Fever/Pain Calcium Carbonate (Calcium Carbonate 750 Mg Tab.Chew) 750 mg PO Q4H PRN PRN Reason: Heartburn Carbamazepine (Carbamazepine Er 100 Mg Tab.Er.12h) 300 mg PO BEDTIME [facility] Last Admin: 09/26/23 20:21 Dose: 300 mg Documented By: CIPRIANO Carbamazepine (Carbamazepine Er 200 Mg Tab.Er.12h) 400 mg PO DAILY [facility] Last Admin: 09/27/23 10:16 Dose: 400 mg Documented By: IRASEMA Enoxaparin Sodium (Enoxaparin Sodium 40 Mg/0.4 Ml Syringe) 40 mg SUBCUT Q24H [facility] Last Admin: 09/26/23 20:03 Dose: 40 mg Documented By: CIPRIANO Lactated Ringer's (Lr) 1,000 mls @ 80 mls/hr IVCONT .[id number] [facility] Last Admin: 09/27/23 14:24 Dose: 80 mls/hr Documented By: IRASEMA Piperacillin Sod/Tazobactam (Sod 4.5 gm/ Sodium Chloride) 100 mls @ 200 mls/hr IV Q6H [facility] Last Infusion: 09/27/23 14:25 Dose: Infused Documented By: IRASEMA Vancomycin HCl 1,250 mg/ (Sodium Chloride) 250 mls @ 166.667 mls/hr IV Q12H [facility] Last Infusion: 09/27/23 13:13 Dose: Infused Documented By: IRASEMA Levetiracetam (Levetiracetam 1,000 Mg Tablet) 2,000 mg PO BID [facility] Last Admin: 09/27/23 10:16 Dose: 2,000 mg Documented By: IRASEMA Loperamide HCl (Loperamide Hcl 2 Mg Capsule) 4 mg PO DAILY PRN PRN Reason: Loose Stool Last Admin: 09/25/23 23:43 Dose: 4 mg Documented By: JUVENCIO Lorazepam (Lorazepam 2 Mg/Ml Vial) 2 mg IV Q5M PRN PRN Reason: Ongoing Seizure Activity Last Admin: 09/25/23 23:44 Dose: 2 mg Documented By: JUVENCIO Lurasidone HCl (Lurasidone Hcl 80 Mg Tablet) 80 mg PO DAILY [facility] Last Admin: 09/27/23 10:15 Dose: 80 mg Documented By: IRASEMA Magnesium Hydroxide (Milk Of Magnesia 30 Ml Oral.Susp) 30 ml PO DAILY PRN PRN Reason: Constipation Melatonin (Melatonin 3 Mg Tablet) 6 mg PO BEDTIME PRN PRN Reason: Insomnia Metoprolol Succinate (Metoprolol Succinate Er 25 Mg Tab.Er.24h) 25 mg PO BID [facility]; Protocol Last Admin: 09/27/23 10:15 Dose: 25 mg Documented By: IRASEMA Omeprazole (Omeprazole 20 Mg Capsule.Dr) 20 mg PO DAILY@0630 [facility] Last Admin: 09/27/23 05:44 Dose: 20 mg Documented By: CIPRIANO Pharmacy Consult (Consult Rx Vancomycin Dosing) 1 each MISCELLANE DAILY PRN PRN Reason: Consult order Polyethylene Glycol (Polyethylene Glycol 3350 17 Gm Powd.Pack) 17 gm PO DAILY [facility] Last Admin: 09/27/23 09:10 Dose: 17 gm Documented By: IRASEMA Senna (Sennosides 8.6 Mg Tablet) 8.6 mg PO BID [facility] Last Admin: 09/27/23 10:16 Dose: 8.6 mg Documented By: IRASEMA Senna (Sennosides 8.6 Mg Tablet) 8.6 mg PO DAILY PRN PRN Reason: Constipation Sodium Biphosphate/Sodium Phosphate (Sodium Phosphate,Davison-Dibasic 133 Ml Enema) 118 ml [place] DAILY PRN PRN Reason: Constipation Sodium Chloride (0.9 % Sodium Chloride Flush 3 Ml Syringe) 3 ml IVFLUSH QSHIFT [facility] Last Admin: 09/27/23 14:54 Dose: Not Given Documented By: IRASEMA Non-Admin Reason: IV Running Sodium Chloride (Sodium Chloride Tab 1 Gm Tablet) 1 gm PO TID [facility] Last Admin: 09/27/23 11:29 Dose: 1 gm Documented By: IRASEMA Labs 09/26/23 04:50 09/27/23 06:26 Labs: Laboratory Results - last 24 hr 09/26/23 09/27/23 21:07 06:26 Estim Creat Clear Calc 111.4 Estimated GFR > 60 Random Vancomycin 15.2 Microbiology Microbiology Results: Microbiology 09/25/23 13:01 Blood Culture - Preliminary Blood - Venous No growth after 48 hours. 09/25/23 12:55 Blood Culture - Preliminary Blood - Venous No growth after 48 hours. Assessment and Plan (1) AMS (altered mental status): Status: Acute (2) Sepsis: Status: Acute Assessment and Plan: 53-year-old male with frontal temporal dementia, blindness, HIV on HAART therapy, history of CVA, esophagitis/GERD, pulmonary fibrosis, chronic hyponatremia, unspecified epilepsy, history of substance abuse, history of unspecified GI cancer, who has a history of recurrent aspiration on regular texture diet/thin liquids admitted for fever of unclear origin but with suspected aspiration Fuo with suspected evolving aspiration pneumonia with severe sepsis Lactic acid normal, Blood cultures pending CXR negative for pneumonia. Chest CT -no pneumonia Cover empirically with iv zosyn and vanco given immunosuppression (initiated 09/24) ID consult-follow CBC, cultures Id eval noted- acute metabolic encephalopathy mental status seems to be improved to baseline -head CT negative for acute intracranial abnormality. Does have history of frontotemporal dementia and TBI but is oriented x3 with some memory impairment at baseline -monitor mentation HIV- d/w pharmacy -will clearify hiv meds ,then add back meds. frontotemporal dementia, history TBI with mood disturbance -see above -continue lorazepam, Tegretol unspecified epileptic disorder -continue Keppra, Tegretol DVT prophylaxis-Lovenox DNR/DNI per [facility] facility paperwork ongoing need of acute metabolic encephalopathy and fever of unclear origin but with suspected evolving aspiration pneumonia with severe sepsis requiring broad-spectrum IV antibiotics, expert consultation and close monitoring of hemodynamics to monitor for and prevent decompensation Quality Stroke Does the patient have a stroke diagnosis?: No VTE Prior VTE?: No VTE Risk Level:: Medical - moderate - high VTE Device Contraindication: Treatment Not Indicated VTE Drug Contraindication: N/A - Med Ordered
[2023-09-27] MEDS: Loperamide HCl 2 MG CAPSULE 4 MG PO (15:44)
--- NOTE | 2023-09-27 16:48 | P.CDIM_ITS ---
PROVIDER RESPONSE TEXT: To clarify, the appropriate diagnosis supported by the clinical indicators: Pancytopenia: pancytopenia unclear etiology QUERY TEXT: PHYSICIAN'S DOCUMENTATION REQUEST Date of Query: 09/27/2023 08:53 AM EDT Patient Name: Theo Key Admit Date: 09/25/2023 Dear Denver Scott MD, A review of the medical record indicates additional documentation may be needed. Please review below and update the documentation accordingly. Clinical Indicators: LAB FINDINGS: WBC 2.9 RBC 3.39 PLT 63 L ABS neuts. 1.9 L HIV, History of unspecified GI cancer, thrombocytopenia, leukopenic, no baseline labs available. Based on the above, is there a diagnosis that correlates with these lab findings: Pancytopenia possible, probable, suspected, unknown cause etc. Labs indicate a diagnosis of (please specify) Other (explain) Clinically unable to determine (explain) Thank you, Ana Talley, CCS, CDIS Use of terms such as suspected, likely, concern for, or probable (associated with a specific diagnosi s that is being evaluated, monitored, or treated as if it exists) are acceptable and can be coded in the inpatient se tting, when documented at the time of discharge. Please use your independent medical judgment in providing your response. THIS QUERY IS PART OF THE PERMANENT MEDICAL RECORD
[2023-09-27] MEDS: Enoxaparin Sodium 40 MG/0.4 ML SYRINGE SUBCUT (19:27)
[2023-09-27 19:34] VITALS: BP 114/57; PULSE 100; RESP 18; TEMP 36.7; O2SAT 98
[2023-09-27 21:20] VITALS: BP 121/62; PULSE 94
[2023-09-27] MEDS: carBAMazepine ER 100 MG TAB.ER.12H 300 MG PO (21:20)
[2023-09-27 22:03] LABS: Vancomycin Random 24.2 mcg/mL (15-20)
[2023-09-28] MEDS: 0.9 % Sodium Chloride Flush 3 ML SYRINGE IVFLUSH ×3 (00:21→15:02)
[2023-09-28] MEDS: Piperacillin Sodium/Tazobactam 4.5 GM in 0.9 % Sodium Chloride 100 ML IV ×3 (02:25→14:59)
[2023-09-28 04:00] VITALS: BP 103/64; PULSE 106; RESP 18; TEMP 36.6; O2SAT 95
[2023-09-28] MEDS: Omeprazole 20 MG CAPSULE.DR PO (05:31)
[2023-09-28 06:43] LABS: Creatinine Clr Calc Pharmacy 100.1; Estimated Glomerular Filt Rate > 60
[2023-09-28 08:00] VITALS: BP 109/58; PULSE 109; RESP 18; TEMP 36.5; O2SAT 95
[2023-09-28 08:07] LABS: Hematocrit 32.6 % (42.0-52.0); Hemoglobin 11.8 g/dl (14.0-18.0); Mean Corpuscular HGB Conc 36.2 g/dl (31.0-36.0); Mean Corpuscular Hemoglobin 33.7 pg (27.0-33.0); Mean Corpuscular Volume 93.1 fL (80.0-98.0); White Blood Count 2.9 X10*3/uL (4.8-10.8)
[2023-09-28 08:09] LABS: Platelet Count 70 X10*3/uL (160-400)
[2023-09-28 10:38] VITALS: BP 109/62; PULSE 96
[2023-09-28] MEDS: levETIRAcetam 1,000 MG TABLET 2000 MG PO ×2 (11:01→19:33)
[2023-09-28] MEDS: Metoprolol Succinate ER 25 MG TAB.ER.24H PO ×2 (11:02→19:33)
[2023-09-28] MEDS: Sodium Chloride Tab 1 GM TABLET PO ×3 (11:02→19:33)
[2023-09-28] MEDS: carBAMazepine ER 200 MG TAB.ER.12H 400 MG PO (11:02)
[2023-09-28] MEDS: Lurasidone HCl 80 MG TABLET PO (11:02)
[2023-09-28] MEDS: vancomycin HCL 1,000 MG in 0.9 % Sodium Chloride 250 ML 270 MG IV (11:03)
--- NOTE | 2023-09-28 11:12 | MHC.CM.PN ---
Addendum entered by Gloria Bajwa RN 09/28/23 15:29: Per MD dc on hold until tomorrow. CM updated guardian and verbally delivered IMM. Original Note: Per MD rounds patient will be medically cleared this afternoon for dc back to snf care [facility]. S transport scheduled for 4pm. , RN, facility, and guardian aware. Guardian is sister Latoya Rodriguezaudoin [phone]
--- NOTE | 2023-09-28 11:55 | MHC.SL.SWA ---
Speech Pathologist Impression: Risk of Aspiration Due to: Neurological Condition Poor PO Intake Reduced Cognition Dysphasia Diet Status: Recommend UPGRADE diet to Chopped/Advanced (NDD3) continue with thin liquids, pills whole in puree or with liquid as preferred. Patient would benefit from supervision at meals due to impulsive behavior. If patient is returning to SNF, can resume diet as indicated there, with supervision at meals to assure slower pace of consumption, and not taking too large bites. Liquid Consistency and Strategies for Safe Swallow: Liquid Intake Recommendation: Thin Liquid Intake Strategies: Small Sips Solid Food Consistency: Dietary Recommendations: Chopped/Advanced (NDD3) Additional Modifications to Solid Foods: Patient would benefit from supervision at meals to assure he is oriented to the the meal and tray, all items are open and available, and cuing/supervision to take smaller bites and sips. Oral Medication Intake: Whole with Puree Please contact the pharmacy regarding appropriate crushable or liquid drug formulations that are available whenever modified delivery is recommended. Compensatory Strategies and Precautions to be Taken for Safe Swallow: Sitting Upright (90 deg) Liquids from Cup Liquids from Straw Small Bites and Sips Alternate Liquids/Solids Rate of Ingestion Change Supervision While Eating and Drinking for Safe Swallow: Total Supervision (1:1) Foods to Avoid: Too large pieces of food. Swallowing Recommended Treatments: Compens. Strategy Educat. Recommendation for Speech: Inpatient Speech Therapy Comment: Recommend Patient seen this morning for repeat swallow assessment for possible upgrade of diet. Patient had been sleeping all morning, on late morning attempt patient woke with an interest in trying some food. Patient initially offered pureed peaches from breakfast tray that was still present. Patient took small tray from [employer], began eating the puree independently, occasionally taking a large spoonful. Oral phase of swallow on this consistency was timely, with timely swallow, mildly reduced laryngeal elevation palpated on swallow. Patient then agreed to pudding with a softened cracker, again feeding self, producing a mildly slow mastication pattern, timely swallow. [employer] then added harder cracker to pudding cup, with patient again managing this texture well with no clinical signs of aspiration, pocketing or difficulty. Patient also took cup of water from [employer], drank from cup with no difficulty. Patient also was observed drinking edenilson bessie with straw, again evidencing no swallowing difficulty. Patient's primary risk is taking too much or too large a bite, or drinking too quickly. Recommend UPGRADE diet to Chopped/Advanced (NDD3) continue with thin liquids, pills whole in puree or with liquid as preferred. Patient would benefit from supervision at meals to assure he is oriented to the the meal and tray, all items are open and available, and cuing/supervision to take smaller bites and sips. RN advised of recommendation in person, MD by secure text, [employer] adjusted diet in chart. Frequency/Duration: Daily Date Range for Service Req: Admission Timeline to reassess: PRN Welder Plasma Arc Clinican/Clinical Fellow: No Supervisory Statement: I have reviewed and agree with the student/clinical fellow's documentation: N/A Speech Language Pathologist: Lynette Pringle M.A., CCC-[employer]
[2023-09-28 12:47] VITALS: BP 109/62; PULSE 96
[2023-09-28] MEDS: LORazepam 2 MG/ML VIAL IVPUSH (14:06)
[2023-09-28 15:37] VITALS: BP 109/64; PULSE 81; RESP 18; TEMP 36.1; O2SAT 97
--- NOTE | 2023-09-28 15:40 | P.PNIM_ITS ---
Subjective Subjective Date of Service: 09/28/23 Interval History: elevated vanco levels generally weak Review of Systems no new c./o Physical Exam 2 Vital Signs: Vital Signs: Last Vital Signs Temp 96.9 F 09/28/23 15:37 Pulse 81 09/28/23 15:37 Resp 18 09/28/23 15:37 BP 109/64 09/28/23 15:37 Pulse Ox 97 09/28/23 15:37 O2 Del Method Room Air 09/28/23 15:37 BMI result Body Mass Index 22.6 Appearance: Alert,awake ,little upset cvs: rrr, [id number] . res: clear to auscultation ,no rhonchii or wheezing abd: no rebound or guarding ,nt, bs present. ext pulses present , no cyanosis . neuro: moves all ext Objective Data Active Medications Acetaminophen (Acetaminophen 325 Mg Tablet) 650 mg PO Q6H PRN PRN Reason: Pain, Mild (Pain Scale 1-3), fever or headache Acetaminophen (Acetaminophen 325 Mg Tablet) 650 mg PO Q6H PRN PRN Reason: Fever/Pain Amoxicillin/Clavulanate Potassium (Amoxicillin/Potassium Clav 875 Mg Tablet) 875 mg PO BID [facility] Calcium Carbonate (Calcium Carbonate 750 Mg Tab.Chew) 750 mg PO Q4H PRN PRN Reason: Heartburn Carbamazepine (Carbamazepine Er 100 Mg Tab.Er.12h) 300 mg PO BEDTIME [facility] Last Admin: 09/27/23 21:20 Dose: 300 mg Documented By: ALEJANDRA Carbamazepine (Carbamazepine Er 200 Mg Tab.Er.12h) 400 mg PO DAILY [facility] Last Admin: 09/28/23 11:02 Dose: 400 mg Documented By: IRASEMA Doxycycline Monohydrate (Doxycycline Monohydrate 100 Mg Capsule) 100 mg PO BID [facility] Enoxaparin Sodium (Enoxaparin Sodium 40 Mg/0.4 Ml Syringe) 40 mg SUBCUT Q24H [facility] Last Admin: 09/27/23 19:27 Dose: 40 mg Documented By: ALEJANDRA Levetiracetam (Levetiracetam 1,000 Mg Tablet) 2,000 mg PO BID [facility] Last Admin: 09/28/23 11:01 Dose: 2,000 mg Documented By: IRASEMA Loperamide HCl (Loperamide Hcl 2 Mg Capsule) 4 mg PO DAILY PRN PRN Reason: Loose Stool Last Admin: 09/27/23 15:44 Dose: 4 mg Documented By: IRASEMA Lorazepam (Lorazepam 2 Mg/Ml Vial) 2 mg IV Q5M PRN PRN Reason: Ongoing Seizure Activity Last Admin: 09/25/23 23:44 Dose: 2 mg Documented By: JUVENCIO Lurasidone HCl (Lurasidone Hcl 80 Mg Tablet) 80 mg PO DAILY [facility] Last Admin: 09/28/23 11:02 Dose: 80 mg Documented By: IRASEMA Magnesium Hydroxide (Milk Of Magnesia 30 Ml Oral.Susp) 30 ml PO DAILY PRN PRN Reason: Constipation Melatonin (Melatonin 3 Mg Tablet) 6 mg PO BEDTIME PRN PRN Reason: Insomnia Metoprolol Succinate (Metoprolol Succinate Er 25 Mg Tab.Er.24h) 25 mg PO BID [facility]; Protocol Last Admin: 09/28/23 11:02 Dose: 25 mg Documented By: IRASEMA Omeprazole (Omeprazole 20 Mg Capsule.Dr) 20 mg PO DAILY@0630 [facility] Last Admin: 09/28/23 05:31 Dose: 20 mg Documented By: ALEJANDRA Pharmacy Consult (Consult Rx Vancomycin Dosing) 1 each MISCELLANE DAILY PRN PRN Reason: Consult order Polyethylene Glycol (Polyethylene Glycol 3350 17 Gm Powd.Pack) 17 gm PO DAILY [facility] Last Admin: 09/28/23 11:00 Dose: Not Given Documented By: IRASEMA Non-Admin Reason: loose stools Senna (Sennosides 8.6 Mg Tablet) 8.6 mg PO BID [facility] Last Admin: 09/28/23 11:00 Dose: Not Given Documented By: IRASEMA Non-Admin Reason: looose stools Senna (Sennosides 8.6 Mg Tablet) 8.6 mg PO DAILY PRN PRN Reason: Constipation Sodium Biphosphate/Sodium Phosphate (Sodium Phosphate,Brooks-Dibasic 133 Ml Enema) 118 ml [place] DAILY PRN PRN Reason: Constipation Sodium Chloride (0.9 % Sodium Chloride Flush 3 Ml Syringe) 3 ml IVFLUSH QSHIFT [facility] Last Admin: 09/28/23 15:02 Dose: 3 ml Documented By: IRASEMA Sodium Chloride (Sodium Chloride Tab 1 Gm Tablet) 1 gm PO TID [facility] Last Admin: 09/28/23 15:02 Dose: 1 gm Documented By: IRASEMA Labs 09/28/23 08:00 09/28/23 05:27 Labs: Laboratory Results - last 24 hr 09/27/23 09/28/23 09/28/23 21:09 05:27 08:00 MCV 93.1 MCH 33.7 H MCHC 36.2 H RDW 12.0 Plt Count 70 L MPV 9.0 L Absolute Nucleated RBC 0.000 Nucleated RBC % (auto) 0.0 Hold Purple Top SEE NOTE Estim Creat Clear Calc 100.1 Estimated GFR > 60 Random Vancomycin 24.2 H Microbiology Microbiology Results: Microbiology 09/25/23 13:01 Blood Culture - Preliminary Blood - Venous No growth after 48 hours. 09/25/23 12:55 Blood Culture - Preliminary Blood - Venous No growth after 48 hours. Assessment and Plan (1) AMS (altered mental status): Status: Acute (2) Sepsis: Status: Acute Assessment and Plan: 53-year-old male with frontal temporal dementia, blindness, HIV on HAART therapy, history of CVA, esophagitis/GERD, pulmonary fibrosis, chronic hyponatremia, unspecified epilepsy, history of substance abuse, history of unspecified GI cancer, who has a history of recurrent aspiration on regular texture diet/thin liquids admitted for fever of unclear origin but with suspected aspiration Fuo with suspected evolving aspiration pneumonia with severe sepsis Lactic acid normal, Blood cultures pending CXR negative for pneumonia. Chest CT -no pneumonia Cover empirically with iv zosyn and vanco given immunosuppression (initiated 09/24) ID consult-follow CBC, cultures Id eval noted-rec antibiotics for 3-5 days , antibiotics switched to po. elevated vanco levels :vanco stopped will recheck this afternoon. acute metabolic encephalopathy mental status seems to be improved to baseline -head CT negative for acute intracranial abnormality. Does have history of frontotemporal dementia and TBI but is oriented x3 with some memory impairment at baseline -monitor mentation HIV- d/w pharmacy -will clearify hiv meds ,then add back meds. frontotemporal dementia, history TBI with mood disturbance -see above -continue lorazepam, Tegretol unspecified epileptic disorder -continue Keppra, Tegretol DVT prophylaxis-Lovenox DNR/DNI per [facility] facility paperwork ongoing need of acute metabolic encephalopathy and fever of unclear origin but with suspected evolving aspiration pneumonia ,elevated vanco levels -need vanco trough moniter. Quality Stroke Does the patient have a stroke diagnosis?: No VTE Prior VTE?: No VTE Risk Level:: Medical - moderate - high VTE Device Contraindication: Treatment Not Indicated VTE Drug Contraindication: N/A - Med Ordered
[2023-09-28] MEDS: Lactated Ringers 1,000 ML 80 ML IVCONT (16:17)
--- NOTE | 2023-09-28 17:47 | PC.NURSE ---
at approximately 1025 patient was in bathroom with staff when his legs began to give out, staff attempted to direct patient to sit back down on toilet but pt does not follow commands and therefore was lowered to floor by staff. Negative head strike or LOC but patient did hit his left knee against toilet on the way down, VSS, and pt declines any pain. MD updated immediately and XR of right knee and head CT ordered. Patient has a history of dementia and TBI and is unable to follow commands. He is a high fall risk d/t unsteady gait and confusion, camera was already in place for safety as well as all high fall risks requirements (red socks, red bracelet, bed alarm/chair alarm, and red star outside room) and pt was previously moved closer to the nurses station for impulsiveness. XR of right knee is negative, and head CT showed no change from previous scan.
[2023-09-28 19:06] VITALS: BP 133/71; PULSE 85; RESP 16; TEMP 36.6; O2SAT 98
[2023-09-28] MEDS: Enoxaparin Sodium 40 MG/0.4 ML SYRINGE SUBCUT (19:32)
[2023-09-28] MEDS: Amoxicillin/Potassium Clav 875 MG TABLET PO (19:33)
[2023-09-28] MEDS: Doxycycline Monohydrate 100 MG CAPSULE PO (19:33)
[2023-09-28] MEDS: Sennosides 8.6 MG TABLET PO (19:33)
[2023-09-28] MEDS: carBAMazepine ER 100 MG TAB.ER.12H 300 MG PO (19:34)
[2023-09-28 21:52] LABS: Vancomycin Random 14.6 mcg/mL (15-20)
[2023-09-29 03:06] VITALS: BP 120/62; PULSE 85; RESP 17; TEMP 36.3; O2SAT 95
[2023-09-29] MEDS: Lactated Ringers 1,000 ML 80 ML IVCONT (03:20)
[2023-09-29] MEDS: Omeprazole 20 MG CAPSULE.DR PO (05:55)
[2023-09-29 06:54] LABS: Creatinine Clr Calc Pharmacy 118.8; Estimated Glomerular Filt Rate > 60
[2023-09-29 08:00] VITALS: RESP 16; TEMP 36.1; O2SAT 94
[2023-09-29 08:34] VITALS: BP 125/71; PULSE 88
[2023-09-29] MEDS: Metoprolol Succinate ER 25 MG TAB.ER.24H PO (08:34)
[2023-09-29] MEDS: levETIRAcetam 1,000 MG TABLET 2000 MG PO (08:34)
[2023-09-29] MEDS: Sodium Chloride Tab 1 GM TABLET PO (08:37)
[2023-09-29] MEDS: Doxycycline Monohydrate 100 MG CAPSULE PO (08:37)
[2023-09-29] MEDS: Amoxicillin/Potassium Clav 875 MG TABLET PO (08:37)
[2023-09-29] MEDS: Sennosides 8.6 MG TABLET PO (08:37)
[2023-09-29] MEDS: Lurasidone HCl 80 MG TABLET PO (08:37)
[2023-09-29] MEDS: carBAMazepine ER 200 MG TAB.ER.12H 400 MG PO (08:37)
--- NOTE | 2023-09-29 10:27 | MHC.CM.PN ---
Per MD patient medically cleared for dc back to LTC @ [facility]. BLS transport scheduled for 12pm. , RN, facility and guardian aware. Last IMM delivered 09/27.
--- NOTE | 2023-09-29 11:33 | P.DS_ITS ---
DS: Providers Provider Date of Service: 09/29/23 Date of admission: 09/25/23 19:51 Date of discharge: 09/29/23 Primary care physician: Kaiden Dennis DO Consults: 09/25/23 19:50 Consult to Infectious Diseases Routine Consulting Provider: [facility] Reason for consultation: HIV pt, fever unknown origin, ?aspiration DS: Diagnosis Discharge Diagnosis (1) AMS (altered mental status): Status: Acute (2) Sepsis: Status: Acute DS: Summary Hospital Course Hospital Course: 53-year-old male with frontal temporal dementia, blindness, HIV on HAART therapy, history of CVA, esophagitis/GERD, pulmonary fibrosis, chronic hyponatremia, unspecified epilepsy, history of substance abuse, history of unspecified GI cancer, who has a history of recurrent aspiration on regular texture diet/thin liquids presented to the ED from [facility] where he resides due to acute encephalopathy, increased from baseline. He is typically oriented x3 and forgetful but on exam is not providing any history and only oriented to self. Facility reports he has had a productive cough over the last 24 hours though no witnessed aspiration event. No hypoxia. On arrival though was febrile to 100.9, tachycardic to 127, tachypneic. Soft blood pressures but no hypotension. He is leukopenic with WBC 4.2 with thrombocytopenia 72, no baseline labs available. Renal function normal, electrolyte levels normal. VBG with pH 7.43, pCO2 27, bicarb 18. AST 44, ALT 51. Procalcitonin 0.02. Urinalysis not indicative of infection but with elevated specific gravity, 3+ blood, 2+ protein. Negative for COVID-19, RSV, influenza. CT of the head negative for acute intracranial abnormality which shows evidence of suspected prior infarction or trauma due to some low attenuation of the left with at least a small calcification but no convincing mass effect. EKG shows sinus tachycardia, rate 128 without any acute ischemic changes. In ED has received 4 L IV NS, IV Zosyn and vancomycin. Hospital course: 53-year-old male with frontal temporal dementia, blindness, HIV on HAART therapy, history of CVA, esophagitis/GERD, pulmonary fibrosis, chronic h yponatremia, unspecified epilepsy, history of substance abuse, history of unspecified GI cancer, who has a history of recurrent aspiration on regular texture diet/thin liquids admitted for fever of unclear origin but with suspected aspiration: Patient was admitted for possible aspiration pneumonia and severe sepsis: Started on broad-spectrum IV antibiotics vanco and Zosyn, blood cultures sent, initial CT chest was negative: Patient seems to be improved with IV antibiotics, sepsis resolved. faustino and nick saw patient -rec mech/chopped diet /thin liquids. Patient has already received 3-4 days of IV antibiotics switched to p.o. doxycycline/Augmentin for 3 days.his mental status seems near baseline . hypokalemia -repleted and resolved. hiv -not on meds ,will need be outpatient meds by ID. pancytopenia :possible in setting of hiv, moniter cbc outpatient ,consider hematology eval outpatient. plan: mild hypocalcemia -added po calcium . complete doxy/augmentin for 3 days moniter cbc and bmp in 1 week in rehab outpatient workup for pulm nodule (5 mm calcified nodule right upper lobe and Small shotty lymph nodes in the mediastinum and axilla. ) as well as pancytopenia. hiv management as per Id outpatient. Above was discussed with the patient family, also discussed with care one Dr dennis. time spent 40 min. Time Attestation Total time managing care of this patient today: 40 mintues. Discharge Coordination Time (in mins): 40 min Quality: Safe Use of Opioids Does Pt have an Active Cancer Diagnosis on the Problem List?: No Quality: Stroke Does the patient have a stroke diagnosis?: No Physical Exam Vital Signs: Vital Signs: Last Vital Signs Temp 97.0 F 09/29/23 08:00 Pulse 88 09/29/23 08:34 Resp 16 09/29/23 08:00 BP 125/71 09/29/23 08:34 Pulse Ox 94 09/29/23 08:00 O2 Del Method Room Air 09/29/23 08:00 BMI result Body Mass Index 22.6 Appearance: awake ,at his baseline. cvs: rrr, [id number] . res: clear to auscultation ,no rhonchii or wheezing abd: no rebound or guarding ,nt, bs present. ext pulses present , no cyanosis . neuro: moves all ext DS: Data Data Completed and Pending Labs on day of discharge: Laboratory Results - last 24 hr 09/28/23 09/29/23 21:15 05:43 Hold Purple Top SEE NOTE Creatinine 0.75 Estim Creat Clear Calc 118.8 Estimated GFR > 60 Random Vancomycin 14.6 L Preliminary micro results at discharge 09/25/23 13:01 Blood Culture - Preliminary Blood - Venous No growth after 48 hours. 09/25/23 12:55 Blood Culture - Preliminary Blood - Venous No growth after 48 hours. Imaging Chest x-ray: Radiologist's impression: ITS Impressions Chest X-Ray 09/25/23 13:40 IMPRESSION: No acute cardiopulmonary disease. Head CT 09/25/23 16:59 IMPRESSION: 1. Limited study. 2. No large acute hemorrhage. 3. There is some low-attenuation on the left with at least a small calcification. No convincing mass effect. This could be a sequelae from previous trauma or infarct but is nonspecific. Direct comparison with any previous studies would be helpful. If there are no previous and patient condition allows, repeat should be considered Chest CT 09/25/23 20:17 IMPRESSION: 1. No acute process seen. 2. There is a 5 mm calcified nodule right upper lobe. 3. There is dependent posterior bibasilar atelectasis or scarring. 4. Small shotty lymph nodes in the mediastinum and axilla. Fleischner guidelines were followed. Knee X-Ray 09/28/23 11:30 IMPRESSION: No significant radiographic abnormality of the left knee. Electronically signed by: Nia Jacobs MD 09/28/2023 01:09 PM EDT RP Head CT 09/28/23 14:29 IMPRESSION: 1. No evidence of intracranial hemorrhage or skull fracture. 2. Unchanged Chronic infarction with cystic encephalomalacia in left head of caudate nucleus, could involve the anterior limb and genu of left internal capsule, bilateral posterior gyri recti. 3. Unchanged Chronic lacunar infarct in posterior lateral left lentiform nucleus (putamen). 4. Unchanged Anterior left jimenez radiata shows asymmetric decrease in attenuation. 5. Unchanged Mild atrophy with mild disproportional ventriculomegaly. 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) Kaiden Dennis DO [Primary Care Provider] - 1 Week Discharge Medications: New doxycycline monohydrate 100 mg Capsule 100 mg PO BID Qty: 6 0RF calcium carbonate [Calcium 500] 500 mg calcium (1,250 mg) tablet,chewable 500 mg PO DAILY Qty: 30 0RF amoxicillin-pot clavulanate 875-125 mg Tablet 1 tab PO BID Qty: 6 0RF Continued carbamazepine 400 mg Tablet Extended Release 12 Hr 400 mg PO DAILY sennosides [senna] 8.6 mg Tablet 8.6 mg PO BID lorazepam 2 mg/mL Solution 2 mg IV Q5M PRN (Reason: Ongoing Seizure Activity ) Rx Instructions: until hemodynamically stable omeprazole 20 mg capsule,delayed release(DR/EC) 20 mg PO DAILY@0630 acetaminophen 325 mg capsule 650 mg PO Q6H MDD 3g PRN (Reason: Fever/Pain) carbamazepine 100 mg capsule, ER multiphase 12 hr 300 mg PO BEDTIME Rx Instructions: Take with 200mg for total of 300mg at bedtime. Fleet Enema 19-7 gram/118 mL enema 118 ml WV DAILY PRN (Reason: Constipation) levetiracetam [Keppra] 1,000 mg tablet 2,000 mg PO BID lurasidone [Latuda] 80 mg tablet 80 mg PO DAILY Rx Instructions: must administer with food (at least 350 calories) loperamide 2 mg capsule See Rx Instructions .ROUTE .COMPLEX PRN (Reason: Loose Stool) Rx Instructions: Give 2 tablets after first loose stool then 1 tablet after each loose stool. metoprolol succinate 25 mg tablet extended release 24 hr 25 mg PO BID polyethylene glycol 3350 [Miralax] 17 gram/dose powder 17 g PO DAILY sodium chloride 1 gram tablet 1,000 mg PO TID Discharge Orders: Discharge Order (Routine); Ordered 09/29/23 Ordered By: Denver Scott Diet: Advance to usual diet Activity on Discharge: As tolerated Stand Alone Forms: Patient Portal Discharge page Print Language: Wolof Care Plan Goals: 53-year-old male with frontal temporal dementia, blindness, HIV on HAART therapy, history of CVA, esophagitis/GERD, pulmonary fibrosis, chronic hyponatremia, unspecified epilepsy, history of substance abuse, history of unspecified GI cancer, who has a history of recurrent aspiration on regular texture diet/thin liquids admitted for fever of unclear origin but with suspected aspiration: Patient was admitted for possible aspiration pneumonia and severe sepsis: Started on broad-spectrum IV antibiotics vanco and Zosyn, blood cultures sent, initial CT chest was negative: Patient seems to be improved with IV antibiotics, sepsis resolved. speech and swlalow saw patient -rec mech/chopped diet /thin liquids. Patient has already received 3-4 days of IV antibiotics switched to p.o. doxycycline/Augmentin for 3 days.his mental status seems near baseline . hypokalemia -repleted and resolved. hiv -not on meds ,will need be outpatient meds by ID. pancytopenia :possible in setting of hiv, moniter cbc outpatient ,consider hem atology eval outpatient. Health Concerns: as above. mild hypocalcemia -added po calcium . complete doxy/augmentin for 3 days moniter cbc and bmp in 1 week in rehab outpatient workup for pulm nodule (5 mm calcified nodule right upper lobe and Small shotty lymph nodes in the mediastinum and axilla. ) as well as pancytopenia. hiv management as per Id outpatient. Plan of Treatment: as above. Assessment: as above.
--- NOTE | 2023-09-29 11:42 | P.CDIM_ITS ---
PROVIDER RESPONSE TEXT: To clarify, the appropriate diagnosis supported by the clinical indicators: Hypocalcemia: mild hypocalcemia QUERY TEXT: PHYSICIAN'S DOCUMENTATION REQUEST Date of Query: 09/29/2023 08:50 AM EDT Patient Name: Theo Key Admit Date: 09/25/2023 Dear Denver Scott MD, A review of the medical record indicates additional documentation may be needed. Please review below and update the documentation accordingly. Clinical Indicators: LABS: calcium 7.7 L Based on the above, is there a diagnosis that correlates with these lab findings: Hypocalcemia resolved, possible, probable etc. Labs indicate a diagnosis of (please specify) Other (explain) Clinically unable to determine (explain) Thank you, Ana Talley, CCS, CDIS Use of terms such as suspected, likely, concern for, or probable (associated with a specific diagnosi s that is being evaluated, monitored, or treated as if it exists) are acceptable and can be coded in the inpatient se tting, when documented at the time of discharge. Please use your independent medical judgment in providing your response. THIS QUERY IS PART OF THE PERMANENT MEDICAL RECORD
[2023-09-29 11:43] LABS: Carbon Dioxide 25 mmol/L (22-29)
== END 2023-09-29 12:09 | disposition home or self-care (01) | DRG 871 ==
LOC: HO.ED 19:23 → HO.EDOVER 20:01 → HO.S3 09-26 07:17
PROVIDERS: Admitting Provider Physician Assistant; Emergency Provider Student in an Organized Health Care Education/Training Program; PCP Hospitalist; Visit Provider Internal Medicine
DX: A41.9 Sepsis, unspecified organism (principal); G93.41 Metabolic encephalopathy; J69.0 Pneumonitis due to inhalation of food and vomit; F02.83 Dementia in other diseases classified elsewhere, unspecified severity, with mood disturbance; D61.818 Other pancytopenia; Z21 Asymptomatic human immunodeficiency virus [HIV] infection status; R91.1 Solitary pulmonary nodule; E83.51 Hypocalcemia; Z66 Do not resuscitate; E87.6 Hypokalemia; G31.09 Other frontotemporal neurocognitive disorder; G40.909 Epilepsy, unspecified, not intractable, without status epilepticus; R65.20 Severe sepsis without septic shock; Z20.822 Contact with and (suspected) exposure to COVID-19; Z87.820 Personal history of traumatic brain injury; Z87.891 Personal history of nicotine dependence; Z79.899 Other long term (current) drug therapy
CPT/HCPCS: 0241U; 36415; 70450; 71046; 71250; 73560; 80048; 80076; 80202; 81001; 82140; 82374; 82565; 82803; 83605; 83735; 84132; 84145; 84484; 85025; 85027; 87040; 92526; 92610; 93005; 99285; J1650; J2060; J2543; J3370; J3371; J3475; J3480; J7120

== ENCOUNTER → 2023-09-25 19:51 | Outpatient (BNV) | payer MEDICARE, SELFPAY | PROVIDERS: Admitting Provider Physician Assistant; Emergency Provider Student in an Organized Health Care Education/Training Program; Visit Provider Physician Assistant | DX: R41.82 Altered mental status, unspecified (principal); A41.9 Sepsis, unspecified organism | CPT/HCPCS: 99223; 99231; 99232; 99239 ==

== ENCOUNTER → 2023-09-25 19:51 | Outpatient (BNV) | payer MEDICARE, SELFPAY | PROVIDERS: Admitting Provider Physician Assistant; Emergency Provider Student in an Organized Health Care Education/Training Program; PCP Hospitalist; Visit Provider Internal Medicine | DX: R41.82 Altered mental status, unspecified (principal); A41.9 Sepsis, unspecified organism | CPT/HCPCS: 99222 ==

== ENCOUNTER 2023-10-11 16:23 | Inpatient (IN) | payer MEDICARE, MEDICAID, SELFPAY ==
[2023-10-11] VITALS (14 sets, daily range): BP systolic 99–125; BP diastolic 62–93; PULSE 80–113; RESP 14–18; TEMP 37.3–37.7; O2SAT 96–99; BMI 26.4
--- NOTE | 2023-10-11 | ECG_ITS ---
Test Reason : ams Blood Pressure : / mmHG Vent. Rate : 074 BPM Atrial Rate : 074 BPM P-R Int : 140 ms QRS Dur : 070 ms QT Int : 396 ms P-R-T Axes : 050 -45 011 degrees QTc Int : 439 ms Normal sinus rhythm Left anterior fascicular block Minimal voltage criteria for LVH, may be normal variant ( R in aVL ) Abnormal ECG When compared with ECG of 25-SEP-2023 13:01, Vent. rate has decreased BY [address] abnormality is no longer Present Referred By: Generic ED Physician Electronically Signed By:JANIYA CAMPOS
--- NOTE | ~2023-10-11 | XR_ITS ---
EXAMINATION: XR CHEST CLINICAL INFORMATION: Altered mental status COMPARISON: Chest CT on 09/25/23 TECHNIQUE: Frontal view of the chest was obtained. FINDINGS: No significant abnormality is noted involving the heart, lungs, mediastinum, bony thorax or soft tissues. XR/XR chest 1V IMPRESSION: Unremarkable examination. Electronically signed by: Nica Reilly MD 10/11/2023 06:16 PM EDT RP
--- NOTE | ~2023-10-11 | CT_ITS ---
EXAMINATION: CT HEAD WITHOUT CONTRAST CLINICAL INFORMATION: Altered mental status. COMPARISON: CT head from 09/28/2023. TECHNIQUE: Contiguous axial imaging was performed from the skull base to vertex without intravenous administration of contrast. This CT examination was performed using dose optimization techniques as appropriate, variously including the following: *Automated exposure control. *Adjustment of mA and/or kV according to patient size (this includes techniques or standardized protocols for targeted exams where dose is matched to indication/reason for exam; i.e. extremities or head). *Use of iterative reconstruction technique. DLP: 1345 mGy-cm FINDINGS: Mildly motion degraded exam. There is chronic encephalomalacia within the inferior left frontal lobe and anterior left mesial temporal lobe with associated volume loss and coarse calcification. No additional loss of galindo-white matter differentiation. No evidence of acute intracranial hemorrhage. Scattered and partially confluent hypoattenuation in the periventricular and deep white matter are consistent with moderate microangiopathy. Proportional prominence of the ventricles and sulcal spaces without evidence of obstructive hydrocephalus. No abnormal mass effect or midline shift. No extra-axial fluid collections. No acute soft tissue or osseous abnormalities. Mild mucosal thickening of the paranasal sinuses. The mastoid air cells and middle ear cavities are clear. CT/CT head/brain wo IV con IMPRESSION: 1. No evidence of acute intracranial hemorrhage or edematous territorial infarction. 2. Chronic encephalomalacia of the inferior left frontotemporal lobes. Moderate underlying microangiopathy and generalized cerebral volume loss. Electronically signed by: Montrell Lozano DO 10/11/2023 10:39 PM EDT
--- NOTE | 2023-10-11 17:08 | ED_ITS ---
HPI - Altered Mental Status General Chief Complaint: Altered Mental Status Stated Complaint: NOT RESPONSIVE, FULL BODY RASH X2DAYS, FEVER Time Seen by Provider: 10/11/23 16:47 Source: EMS Limitations: altered mental status History of Present Illness ED Provider: Ivanna wilder PA-C HPI narrative: 53-year-old male with history of prior CVA, frontal lobe dementia, TBI, seizure disorder, HIV, prior substance abuse, pulmonary fibrosis, recent hospital admission for pneumonia, presenting from [facility] with altered mental status. Per EMS, the patient developed a body wide rash that has been pruritic and bothersome over the past 2 days. They reported the patient has also had fevers at their facility. Today, the patient seemed to be altered from his baseline, he was less verbal, not wanting to engage in conversation, and has had decreased oral intake. At the time of discharge from his recent hospital admission, the patient was placed on doxycycline and Augmentin. Related Data Home Medications ?Medication ?Instructions ?Recorded ?Confirmed acetaminophen 325 mg capsule 650 mg PO Q6H PRN Fever/Pain 07/05/22 10/12/23 carbamazepine 100 mg 300 mg PO BEDTIME 07/05/22 10/12/23 capsule,extended release [id number] levetiracetam 1,000 mg tablet 2,000 mg PO BID 07/05/22 10/12/23 (Keppra) loperamide 2 mg capsule See Rx Instructions .Route 07/05/22 10/12/23 .COMPLEX PRN Loose Stool lurasidone 80 mg tablet (Latuda) 80 mg PO DAILY 07/05/22 10/12/23 metoprolol succinate 25 mg 25 mg PO BID 07/05/22 10/12/23 tablet,extended release 24 hr polyethylene glycol 3350 17 17 g PO DAILY 07/05/22 10/12/23 gram/dose oral powder (Miralax) sodium chloride 1 gram tablet 1,000 mg PO TID 07/05/22 10/12/23 sodium phosphates 19 gram-7 118 ml MA DAILY PRN Constipation 07/05/22 10/12/23 gram/118 mL enema (Fleet Enema) carbamazepine 400 mg 400 mg PO DAILY 09/25/23 10/12/23 tablet,extended release,12 hr lorazepam 2 mg/mL injection 2 mg IV Q5M PRN Ongoing Seizure 09/25/23 10/12/23 solution Activity omeprazole 20 mg capsule,delayed 20 mg PO DAILY@0630 09/25/23 10/12/23 release sennosides 8.6 mg tablet (senna) 8.6 mg PO BID 09/25/23 10/12/23 Previous Rx's ?Medication ?Instructions ?Recorded calcium carbonate (Calcium 500) 500 mg PO DAILY #30 tabs 09/29/23 Allergies Allergy/AdvReac Type Severity Reaction Status Date / Time No Known Allergies Allergy Verified 10/11/23 16:41 Review of Systems 2 Review of Systems: Review of systems is limited as the patient can not verbalize any complaints Yes all other systems are reviewed and are negative Constitutional: Constitutional: Denies fever(s) and Reports poor appetite PMFSH Past Medical History Attestation statement: The following information was validated with the patient. Medical History Pulmonary fibrosis History of substance use Gastritis Esophagitis History of CVA (cerebrovascular accident) Frontotemporal dementia Cancer HIV (human immunodeficiency virus infection) History of traumatic head injury Seizures Lung granuloma Surgical History Hx of colonoscopy History of esophagogastroduodenoscopy (EGD) Hx of appendectomy Social History Social History Household Members: Other Household Members Other:: [facility] Housing: Prison Patient Tobacco Use Status: Former Tobacco user Advance Directives: Yes Advance Directives Information Provided: No Advance Directives on File: No Do you have a plan to hurt others: No Plan Nutrition Risks: Dental problems and On aspiration precautions service: No Physical Exam ED Vital Signs: Vital Signs - 24 hr 10/11/23 16:40 10/11/23 19:29 10/11/23 19:44 Temperature 99.9 F Pulse Rate 88 Respiratory Rate 18 15 15 Blood Pressure 125/70 Pulse Oximetry 98 Oxygen Delivery Method Room Air 10/11/23 19:59 10/11/23 20:14 10/11/23 20:29 Temperature Pulse Rate 108 H Respiratory Rate 14 14 14 Blood Pressure Pulse Oximetry 96 Oxygen Delivery Method Room Air 10/11/23 20:35 10/11/23 20:50 10/11/23 20:55 Temperature 99.1 F Pulse Rate Respiratory Rate 14 14 Blood Pressure Pulse Oximetry Oxygen Delivery Method 10/11/23 20:59 10/11/23 21:05 10/11/23 21:20 Temperature Pulse Rate 111 H 111 H Respiratory Rate 16 14 14 Blood Pressure 121/93 H 112/79 Pulse Oximetry 97 98 Oxygen Delivery Method Room Air Room Air 10/11/23 21:35 10/11/23 22:07 10/12/23 00:00 Temperature 99.1 F Pulse Rate 113 H 102 H Respiratory Rate 14 18 Blood Pressure 104/80 124/70 118/62 Pulse Oximetry 98 98 Oxygen Delivery Method Room Air Room Air BMI result Body Mass Index 26.4 Const Other: Awake Orientation/consciousness: oriented to person HENMT Other: No desquamation of the oral mucosa, no petechiae noted over the gingiva or oropharynx Resp Other: Nonlabored respirations, lungs clear to auscultation Cardio Other: Normal peripheral perfusion Skin Other: Dry, raised, erythematous rash with overlying scale in some areas, the lesions coalesce, are clustered, without discrete margins, they do not gustabo, they spare the palms and the soles of the feet. The rashes over bilateral upper extremities, lower extremities, and anterior and posterior torso, and genitalia Neuro Other: To note, the patient does know that he is in the hospital General: oriented to person Extrem Other: Ambulates with the antalgic gait, his strength is 5/5 bilateral upper and lower extremity Psych Other: Somewhat uncooperative, having mild behavioral outbursts, trying to grab at female staff, he is easily de-escalated from these behaviors Course Reevaluation(s) Reevaluation #1: We were told by EMS and [facility] report, that the patient has been hypotensive at the facility, he is not hypotensive here, I am giving a 1 L bolus, he does not require weight based, 30 mg/ kg of IV fluid resuscitation at this time per sepsis protocol. We were also told that he has had fevers, we have have it documented that he is 99.9 rectally. Perhaps he is developing a fever, we will obtain blood cultures and a lactate Time: 17:13 Reevaluation #2: No leukocytosis, lactate not elevated, his pressures remain stable, I am not starting antibiotics, this is not sepsis Medications Administered Discontinued Medications Generic Name Dose Route Start Last Admin Trade Name Christianne PRN Reason Stop Dose Admin Diphenhydramine HCl 25 mg 10/11/23 23:17 10/11/23 23:22 Diphenhydramine Hcl 50 Mg/Ml Vial IVPUSH 10/11/23 23:18 25 mg ONCE ONE Administration Famotidine 20 mg 10/11/23 23:17 10/11/23 23:22 Famotidine/Pf 20 Mg/2 Ml Vial IVPUSH 10/11/23 23:18 20 mg ONCE ONE Administration Sodium Chloride 1,000 mls @ 999 mls/hr 10/11/23 17:15 10/11/23 19:00 Ns IV 10/11/23 18:15 Infused .Q1H1M NIKKO Infusion Sodium Chloride 1,000 mls @ 999 mls/hr 10/11/23 17:15 10/12/23 00:40 Ns IV 10/11/23 18:15 Infused .Q1H1M NIKKO Infusion Levetiracetam 1,500 mg in 100 mls @ 400 mls/hr 10/12/23 00:25 10/12/23 01:03 Keppra IV 10/12/23 00:39 Infused ONCE ONE Infusion Levetiracetam 500 mg in 100 mls @ 400 mls/hr 10/12/23 00:25 10/12/23 01:04 Keppra IV 10/12/23 00:39 Infused ONCE ONE Infusion Lorazepam 2 mg 10/11/23 20:31 10/11/23 20:35 Lorazepam 2 Mg/Ml Vial IM 10/11/23 20:32 2 mg ONCE ONE Administration Methylprednisolone Sodium Succinate 125 mg 10/11/23 22:20 10/11/23 23:22 Methylprednisolone Sod Succ 125 Mg/2 Ml Vial IVPUSH 10/11/23 22:21 125 mg ONCE ONE Administration Olanzapine 10 mg 10/11/23 19:18 10/11/23 19:29 Olanzapine 10 Mg Vial IM 10/11/23 19:19 10 mg ONCE ONE Administration Medical Decision Making Medical Decision Making MDM Narrative: 53-year-old male with history of prior CVA, frontal lobe dementia, TBI, seizure disorder, HIV, prior substance abuse, pulmonary fibrosis, recent hospital admission for pneumonia, presenting from [facility] with altered mental status. Per EMS, the patient developed a body wide rash that has been pruritic and bothersome over the past 2 days. They reported the patient has also had fevers at their facility. Today, the patient seemed to be altered from his baseline, he was less verbal, not wanting to engage in conversation, and has had decreased oral intake. At the time of discharge from his recent hospital admission, the patient was placed on doxycycline and Augmentin. Problem: Cognitive impairment, TBI, seizure disorder, dementia History: Per EMS the [facility] record I have considered the following differential diagnoses: UTI, sepsis, Zaire Jose's, drug reaction, brain tumor, worsening dementia, sepsis Plan: Given the report that the patient was hypotensive and febrile at the nursing facility, I am considering sepsis. He is normotensive, he is not tachycardic, however his rectal temp was 99.9?, he could be developing a fever, we will reassess. We will be screening broad labs, urinalysis, chest x-ray and viral panel. Obtaining blood cultures and a lactic acid. As I have already documented, the patient does not require weight based IV fluid per sepsis protocol; 30 mg/kg kg. I will give 1 L. He is here for what appears to be a drug-induced rash, he was recently on Augmentin and doxycycline, it is likely the Augmentin that triggered this. We will treat symptomatically. I am also obtaining a CT scan of the brain due to his altered mental status. It is unclear what his baseline mentation is. However today in the emergency department, he is having behavioral disturbances, which is minimal. I have independently reviewed the following tests: Labs: No leukocytosis, not anemic, no electrolyte abnormality, lactate EKG: Normal sinus rhythm, rate of 74, no ischemic changes no ectopy, QT 439 Chest x-ray:COMPARISON: Chest CT on 09/25/23 TECHNIQUE: Frontal view of the chest was obtained. FINDINGS: No significant abnormality is noted involving the heart, lungs, mediastinum, bony thorax or soft tissues. XR/XR chest 1V IMPRESSION: Unremarkable examination. CT brain: CT/CT head/brain wo IV con IMPRESSION: 1. No evidence of acute intracranial hemorrhage or edematous territorial infarction. 2. Chronic encephalomalacia of the inferior left frontotemporal lobes. Moderate underlying microangiopathy and generalized cerebral volume loss. Lab Data 10/11/23 17:33 10/11/23 17:33 Labs: Lab Results 10/11/23 10/11/23 10/11/23 Range/Units 17:25 17:33 17:58 WBC 4.1 L (4.8-10.8) X10*3/uL RBC 3.62 L (4.60-5.80) X10*6/uL Hgb 12.0 L (14.0-18.0) g/dl Hct 34.8 L (42.0-52.0) % MCV 96.1 (80.0-98.0) fL MCH 33.1 H (27.0-33.0) pg MCHC 34.5 (31.0-36.0) g/dl RDW 13.1 (11.0-16.0) % Plt Count 68 L (160-400) X10*3/uL MPV 10.5 (9.4-12.4) fL Immature Gran % (Auto) 0.2 (0.0-0.4) % Neut % (Auto) 70.3 (45-73) % Lymph % (Auto) 14.5 L (20-40) % Vilas % (Auto) 8.6 (2-11) % Eos % (Auto) 6.4 H (0-4) % Baso % (Auto) 0.0 (0-2) % Lymph # (Auto) 0.6 L (1.2-4.9) X10*3/uL Vil[place] # (Auto) 0.4 (0.1-1.2) X10*3/uL Eos # (Auto) 0.3 (0.0-0.4) X10*3/uL Baso # (Auto) 0.0 (0.0-0.2) X10*3/uL Abs Immat Gran (auto) 0.01 (0.00-0.03) X10*3/uL Absolute Neuts (auto) 2.9 (2.0-8.3) x10*3/uL Absolute Nucleated RBC 0.000 (0.0-0.012) X10*3/uL Nucleated RBC % (auto) 0.0 (0.0-0.2) /100WBC Hold Blue Top SEE NOTE Sodium 145 (135-145) mmol/L Potassium 3.7 (3.3-5.1) mmol/L Chloride 112 H (96-108) mmol/L Carbon Dioxide 24 (22-29) mmol/L Anion Gap 13 (12-20) BUN 13 (9-16) mg/dL Creatinine 0.81 (0.5-1.4) mg/dL Estim Creat Clear Calc 99.6 Estimated GFR > 60 Random Glucose 82 (60-115) mg/dL Lactic Acid 1.0 (0.5-2.0) mmol/L Calcium 8.9 D (8.4-10.2) mg/dL Magnesium 2.1 (1.6-2.6) mg/dL Total Bilirubin 0.4 (0.0-1.0) mg/dL AST 40 H (5-37) U/L ALT 38 (0-40) U/L Alkaline Phosphatase 82 (39-117) U/L Total Protein 7.8 (6.5-8.0) g/dL Albumin 3.7 (3.5-5.0) g/dL Urine Color Dark Yellow Urine Appearance Clear Urine pH 5.5 (5.0-9.0) Ur Specific [place] 1.025 (1.005-1.025) Urine Protein 30 (1+) H (Neg-Trace) mg/dL Urine Glucose (UA) Negative (Negative) mg/dL Urine Ketones 80 (Negative) mg/dL Urine Blood Moderate (2+) H (Negative) Urine Nitrite Negative (Negative) Ur Leukocyte Esterase Negative (Negative) Urine RBC >20 H (0-2) /HPF Urine WBC 6-10 H (0-5) /HPF Ur Squamous Epith Cells 3-5 (0-2) /HPF Urine Bacteria None Seen (None Seen) Hyaline Casts 0-2 (0-2) /LPF Influenza Type A (PCR) NEGATIVE (Negative) Influenza Type B (PCR) NEGATIVE (Negative) RSV RNA Qual (PCR) NEGATIVE (Negative) SARS-CoV-2 RNA (RT-PCR) NEGATIVE (Negative) Procedures Procedure Narrative Procedure Narrative: Ultrasound-guided IV 18 gauge 1-3/4 inch IV placed in the left upper extremity. It flushes well, adequate return, it was secured with Coban, he had subsequently pulled out his 1st IV that nursing had placed. Discharge Plan Discharge Clinical Impression: Drug rash, Altered mental status Patient Disposition: Admitted As Inpatient
[2023-10-11 17:37] LABS: MANUAL DIFF FLAG NO
[2023-10-11 17:45] LABS: Eosinophils Absolute Auto 0.3 X10*3/uL (0.0-0.4); Eosinophils Percent Auto 6.4 % (0-4); Hematocrit 34.8 % (42.0-52.0); Imm Gran Abs Auto 0.01 X10*3/uL (0.00-0.03); Imm Gran Pct Auto 0.2 % (0.0-0.4); Lymphocytes Absolute Auto 0.6 X10*3/uL (1.2-4.9); Lymphocytes Percent Auto 14.5 % (20-40); Mean Corpuscular HGB Conc 34.5 g/dl (31.0-36.0); Mean Corpuscular Hemoglobin 33.1 pg (27.0-33.0); Mean Corpuscular Volume 96.1 fL (80.0-98.0); Mean Platelet Volume 10.5 fL (9.4-12.4); Monocytes Absolute Auto 0.4 X10*3/uL (0.1-1.2); Monocytes Percent Auto 8.6 % (2-11); Neutrophils Absolute Auto 2.9 x10*3/uL (2.0-8.3); Neutrophils Percent Auto 70.3 % (45-73); Platelet Count 68 X10*3/uL (160-400); Red Blood Count 3.62 X10*6/uL (4.60-5.80); Red Cell Distribution Width 13.1 % (11.0-16.0); White Blood Count 4.1 X10*3/uL (4.8-10.8)
[2023-10-11 17:53] LABS: Magnesium 2.1 mg/dL (1.6-2.6)
[2023-10-11 17:55] LABS: Alanine Aminotransferase 38 U/L (0-40); Albumin Level 3.7 g/dL (3.5-5.0); Alkaline Phosphatase 82 U/L (39-117); Anion Gap 13 (12-20); Aspartate Amino Transferase 40 U/L (5-37); Bilirubin Total 0.4 mg/dL (0.0-1.0); Blood Urea Nitrogen 13 mg/dL (9-16); Calcium 8.9 mg/dL (8.4-10.2); Carbon Dioxide 24 mmol/L (22-29); Chloride 112 mmol/L (96-108); Creatinine Clr Calc Pharmacy 99.6; Estimated Glomerular Filt Rate > 60; Glucose Random 82 mg/dL (60-115); Potassium 3.7 mmol/L (3.3-5.1); Sodium 145 mmol/L (135-145); Total Protein 7.8 g/dL (6.5-8.0)
[2023-10-11] MEDS: 0.9 % Sodium Chloride 1,000 ML 999 ML IV ×2 (18:00→23:22)
[2023-10-11 18:09] LABS: Appearance Urine Clear; Color Urine Dark Yellow; Glucose Urine UA Negative (Negative); Leukocyte Esterase Urine Negative (Negative); Nitrite Urine Negative (Negative); PH 5.5 (5.0-9.0); Specific Gravity - Urine 1.025 (1.005-1.025); UMIC TRIGGER UACC YES; Urine Blood Moderate (2+) (Negative); Urine Ketones 80 mg/dL (Negative); Urine Protein 30 (1+) mg/dL (Neg-Trace)
[2023-10-11 18:15] LABS: Bacteria Urine None Seen (None Seen); Hyaline Casts Urine 0-2 /LPF (0-2); RBC Urine >20 /HPF (0-2); UACC Culture Trigger YES
[2023-10-11 18:17] LABS: Influenza A PCR NEGATIVE (Negative); Influenza B PCR NEGATIVE (Negative); Resp Syncy Virus RNA Qual PCR NEGATIVE (Negative); SARS COV2 PCR INHOUSE NEGATIVE (Negative)
--- NOTE | 2023-10-11 18:28 | PC.NURSE ---
IV established by ems. patient becoming more awake and responsive. straight cath to obtain urine, patient tolerated fairly. patient removed IV, phototypesetting equipment monitor leads, and was trying to get out of bed. changed and provided with urinal at this time.
[2023-10-11] MEDS: OLANZapine 10 MG VIAL IM (19:29)
--- NOTE | 2023-10-11 19:29 | PC.NURSE ---
pt ripped out iv, is oob and refusing to stay in room. pt swinging at staff when attempting to reorient to room/situation/surroundings, refusing new IV placement. pt also needs head ct and is uncooperative/unable to follow directions. pt refusing vitals. IM given per mar with hold order from PA. to reassess behavior.
--- NOTE | 2023-10-11 19:37 | MHC.EDTECH ---
Unable to do patient's vitals, Patient uncooperative
--- NOTE | 2023-10-11 19:59 | PC.NURSE ---
pt calm, laying in stretcher comfortably. refusing vitals. Pa aware. CT staff made aware to attempt ct scan.
[2023-10-11] MEDS: LORazepam 2 MG/ML VIAL IM (20:35)
--- NOTE | 2023-10-11 20:35 | PC.NURSE ---
attempt head ct and pt uncooperative. oriented to self (baseline), attempted verbal reassurance and orienting to surroundings. pt flailing on ct bed. pt medicated per apr. will reattempt.
--- NOTE | 2023-10-11 20:36 | MHC.EDTECH ---
Unable to perform Labs, Patient got medicated IM
--- NOTE | 2023-10-11 21:05 | PC.NURSE ---
pt in ct scan at this time, able to obtain pictures.
--- NOTE | 2023-10-11 22:34 | PC.NURSE ---
3x attempt for iv unable to establish/obtain labs. PA aware will try iv ultrasound.
--- NOTE | 2023-10-11 22:59 | PC.NURSE ---
PA at bedside to attempt for ultrasound IV
[2023-10-11] MEDS: methylPREDNISolone Sod Succ 125 MG/2 ML VIAL IVPUSH (23:22)
[2023-10-11] MEDS: Famotidine/PF 20 MG/2 ML VIAL IVPUSH (23:22)
[2023-10-11] MEDS: diphenhydrAMINE HCL 50 MG/ML VIAL 25 MG IVPUSH (23:22)
--- NOTE | 2023-10-11 23:58 | PC.NURSE ---
pt incontinent of urine, pawel care provided linen changed pt repositioned to L. side. afebrile. warm blankets given. resting comfortably now. sitter at bedside for safety as attempts to get oob. ivf infusing. pt medicated per mar, rash improved however still present all over body. pt denies itchiness have not noted pt to be itching self.
[2023-10-12] VITALS: BP 118/62; PULSE 102; RESP 18; TEMP 37.3; O2SAT 98
--- NOTE | 2023-10-12 00:27 | P.HPHOSP_ITS ---
History of Present Illness Date of Service: 10/12/23 Chief Complaint: AMS This is a 53-year-old male with pertinent history of HIV on HAART, history of CVA, seizure disorder, frontal temporal dementia, blindness, history of substance use disorder, gastroesophageal reflux disease, mood disorder, history of GI cancer, history of recurrent aspiration who was sent to the emergency department for evaluation of altered mentation. Unable to obtain history from the patient. He was agitated in the ER and given Ativan and Zyprexa in the ER. Patient is drowsy and only eye opening to verbal stimulus at the time of my evaluation. History obtained from ER provider and chart review. Patient developed a whole-body rash which was pruritic days prior to presentation. Patient also was febrile at outside facility, and documented temperature. He was found to be altered from his baseline, less verbal, not engaging in conversation and with poor p.o. intake and hence sent to the ER further evaluation. Of note, patient was recently admitted with acute encephalopathy and sepsis due to aspiration pneumonia and discharged on 09/28 with doxycycline and Augmentin. Unable to obtain review of systems. Review of Systems 2 Review of Systems: Yes Unobtainable due to mental status [facility] Medical History Pulmonary fibrosis History of substance use Gastritis Esophagitis History of CVA (cerebrovascular accident) Frontotemporal dementia Cancer HIV (human immunodeficiency virus infection) History of traumatic head injury Seizures Lung granuloma Surgical History Hx of colonoscopy History of esophagogastroduodenoscopy (EGD) Hx of appendectomy Social History Household Members: Other Household Members Other:: [facility] Housing: Shelter Patient Tobacco Use Status: Former Tobacco user Advance Directives: Yes Advance Directives Information Provided: No Advance Directives on File: No Do you have a plan to hurt others: No Plan service: No Meds Allergies Allergy/AdvReac Type Severity Reaction Status Date / Time No Known Allergies Allergy Verified 10/11/23 16:41 Home Medications ?Medication ?Instructions ?Recorded ?Confirmed ?Last Taken ?Type acetaminophen 325 mg capsule 650 mg PO Q6H PRN Fever/Pain 07/05/22 09/25/23 Unknown History carbamazepine 100 mg 300 mg PO BEDTIME 07/05/22 09/25/23 Unknown History capsule,extended release [id number] levetiracetam 1,000 mg tablet 2,000 mg PO BID 07/05/22 09/25/23 Unknown History (Keppra) loperamide 2 mg capsule See Rx Instructions .Route 07/05/22 09/25/23 Unknown History .COMPLEX PRN Loose Stool lurasidone 80 mg tablet (Latuda) 80 mg PO DAILY 07/05/22 09/25/23 Unknown History metoprolol succinate 25 mg 25 mg PO BID 07/05/22 09/25/23 Unknown History tablet,extended release 24 hr polyethylene glycol 3350 17 17 g PO DAILY 07/05/22 09/25/23 Unknown History gram/dose oral powder (Miralax) sodium chloride 1 gram tablet 1,000 mg PO TID 07/05/22 09/25/23 Unknown History sodium phosphates 19 gram-7 118 ml IN DAILY PRN Constipation 07/05/22 09/25/23 Unknown History gram/118 mL enema (Fleet Enema) carbamazepine 400 mg 400 mg PO DAILY 09/25/23 09/25/23 Unknown History tablet,extended release,12 hr lorazepam 2 mg/mL injection 2 mg IV Q5M PRN Ongoing Seizure 09/25/23 09/25/23 Unknown History solution Activity omeprazole 20 mg capsule,delayed 20 mg PO DAILY@0630 09/25/23 09/25/23 Unknown History release sennosides 8.6 mg tablet (senna) 8.6 mg PO BID 09/25/23 09/25/23 Unknown History Physical Exam 2 Vital Signs and Narrative: Vital Signs: Last Vital Signs Temp 99.1 F 10/12/23 00:00 Pulse 102 H 10/12/23 00:00 Resp 18 10/12/23 00:00 BP 118/62 10/12/23 00:00 Pulse Ox 98 10/12/23 00:00 O2 Del Method Room Air 10/12/23 00:00 BMI result Body Mass Index 26.4 Middle-aged male lying in bed in no distress Neck supple, no JVD Regular rate and rhythm, S1-S2 heard Regular breath sounds bilaterally, no wheezing or crackles appreciated Abdomen soft nontender, no guarding, no rigidity Patient is lethargic and only eye opening to verbal stimulus, not taking part in conversation, unable to assess orientation, not following commands Psych: Drowsy Erythematous nonpalpable maculopapular rash over body sparing palms and soles, no mucosal involvement Results Labs 10/11/23 17:33 10/11/23 17:33 Labs: Laboratory Results - last 24 hr 10/11/23 10/11/23 10/11/23 17:25 17:33 17:58 MCV 96.1 MCH 33.1 H MCHC 34.5 RDW 13.1 Plt Count 68 L MPV 10.5 Immature Gran % (Auto) 0.2 Neut % (Auto) 70.3 Lymph % (Auto) 14.5 L Park % (Auto) 8.6 Eos % (Auto) 6.4 H Baso % (Auto) 0.0 Lymph # (Auto) 0.6 L Park # (Auto) 0.4 Eos # (Auto) 0.3 Baso # (Auto) 0.0 Abs Immat Gran (auto) 0.01 Absolute Neuts (auto) 2.9 Absolute Nucleated RBC 0.000 Nucleated RBC % (auto) 0.0 Hold Blue Top SEE NOTE Anion Gap 13 Estim Creat Clear Calc 99.6 Estimated GFR > 60 Random Glucose 82 Lactic Acid 1.0 Calcium 8.9 D Magnesium 2.1 Total Bilirubin 0.4 AST 40 H ALT 38 Alkaline Phosphatase 82 Total Protein 7.8 Albumin 3.7 Urine Color Dark Yellow Urine Appearance Clear Urine pH 5.5 Ur Specific [place] 1.025 Urine Protein 30 (1+) H Urine Glucose (UA) Negative Urine Ketones 80 Urine Blood Moderate (2+) H Urine Nitrite Negative Ur Leukocyte Esterase Negative Urine RBC >20 H Urine WBC 6-10 H Ur Squamous Epith Cells 3-5 Urine Bacteria None Seen Hyaline Casts 0-2 Influenza Type A (PCR) NEGATIVE Influenza Type B (PCR) NEGATIVE RSV RNA Qual (PCR) NEGATIVE SARS-CoV-2 RNA (RT-PCR) NEGATIVE Imaging Radiologist's Impressions: Impressions Chest X-Ray 10/11/23 16:35 IMPRESSION: Unremarkable examination. Electronically signed by: Nica Reilly MD 10/11/2023 06:[address] 10/11/23 21:00 IMPRESSION: 1. No evidence of acute intracranial hemorrhage or edematous territorial infarction. 2. Chronic encephalomalacia of the inferior left frontotemporal lobes. Moderate underlying microangiopathy and generalized cerebral volume loss. Electronically signed by: Montrell Lozano DO 10/11/2023 10:39 PM EDT RP Assessment and Plan (1) AMS (altered mental status): Status: Acute (2) Rash: Status: Acute Plan This is a 53-year-old male with pertinent history of HIV on HAART, history of CVA, seizure disorder, frontal temporal dementia, blindness, history of substance use disorder, gastroesophageal reflux disease, mood disorder, history of GI cancer, history of recurrent aspiration who was sent to the emergency department for evaluation of altered mentation. #. Acute encephalopathy #. Erythematous pruritic rash -?drug hypersensitivity reaction. Ordered antihistaminics and systemic steroids. Obtaining ESR, ANCA. No mucosal or airway involvement. Hemodynamically stable. Monitor for improvement #. HIV: Continue HAART #. History of TBI with behavioral disturbance/frontotemporal dementia: Continue lorazepam, lurasidone and Tegretol #. Seizure disorder: On Keppra and Tegretol #. Gastroesophageal reflux disease: On PPI #. Thrombocytopenia, chronic: Defer prophylactic Lovenox DVT prophylaxis: SCDs DNR/DNI Quality Stroke Does the patient have a stroke diagnosis?: No VTE Prior VTE?: No VTE Risk Level:: Medical - moderate - high VTE Device Contraindication: N/A - Device Ordered VTE Drug Contraindication: Treatment Not Indicated
[2023-10-12] MEDS: levETIRAcetam in NaCl (iso-os) 1,500 MG/100 ML PIGGYBACK 400 MG IV (00:45)
[2023-10-12] MEDS: levETIRAcetam in NaCl (iso-os) 500 MG/100 ML PIGGYBACK 400 MG IV (00:45)
[2023-10-12 05:30] LABS: Eosinophils Absolute Auto 0.1 X10*3/uL (0.0-0.4); Imm Gran Abs Auto 0.01 X10*3/uL (0.00-0.03); Imm Gran Pct Auto 0.2 % (0.0-0.4); Monocytes Absolute Auto 0.1 X10*3/uL (0.1-1.2); PLT CLUMP 1; Red Blood Count 3.13 X10*6/uL (4.60-5.80); Red Cell Distribution Width 12.9 % (11.0-16.0); SCAN SMEAR FLAG 1
[2023-10-12 05:32] LABS: Basophils Percent Auto 0.2 % (0-2); Hematocrit 30.2 % (42.0-52.0); Hemoglobin 10.5 g/dl (14.0-18.0); Lymphocytes Absolute Auto 0.5 X10*3/uL (1.2-4.9); Lymphocytes Percent Auto 9.3 % (20-40); Mean Corpuscular HGB Conc 34.8 g/dl (31.0-36.0); Mean Corpuscular Hemoglobin 33.5 pg (27.0-33.0); Mean Corpuscular Volume 96.5 fL (80.0-98.0); Mean Platelet Volume 10.3 fL (9.4-12.4); Monocytes Percent Auto 2.1 % (2-11); Neutrophils Absolute Auto 4.2 x10*3/uL (2.0-8.3); Neutrophils Percent Auto 87.2 % (45-73)
[2023-10-12 05:35] LABS: MANUAL DIFF FLAG NO; Platelet Count 73 X10*3/uL (160-400); White Blood Count 4.8 X10*3/uL (4.8-10.8)
[2023-10-12 05:48] LABS: Anion Gap 15 (12-20); Blood Urea Nitrogen 11 mg/dL (9-16); Calcium 7.9 mg/dL (8.4-10.2); Carbon Dioxide 21 mmol/L (22-29); Chloride 110 mmol/L (96-108); Creatinine Clr Calc Pharmacy 102.2; Estimated Glomerular Filt Rate > 60; Glucose Random 103 mg/dL (60-115); Potassium 3.5 mmol/L (3.3-5.1); Sodium 142 mmol/L (135-145)
[2023-10-12 06:01] LABS: Erythrocyte Sedimentation Rate 44 MM/HR (0-15)
[2023-10-12 06:13] VITALS: BP 119/71; PULSE 92; RESP 16; TEMP 36.6; O2SAT 97
--- NOTE | 2023-10-12 08:01 | PHA.MEDREC ---
Pharmacy Consult ? Medication Reconciliation Pharmacy has reviewed med rec completed by nursing. Looked through list from [facility]. It looks like patient started a Potassium Chloride 20 MEQ 3 day regimen on 10/10/23 for low potassium, I added it into the med rec since he would be on day 2 of 3 in the regimen and have 1 day left of that. Otherwise Med Rec looked good done by nursing.
[2023-10-12] MEDS: methylPREDNISolone Sod Succ 125 MG/2 ML VIAL 60 MG IVPUSH (08:09)
[2023-10-12] MEDS: 0.9 % Sodium Chloride Flush 3 ML SYRINGE IVFLUSH (08:10)
--- NOTE | 2023-10-12 08:10 | PHA.MEDREC ---
Addendum entered by Paramjit Vargas RPh 10/12/23 09:30: Patient has been taking Potassium Cl eR 40mEq BID, on day 2 or 3 day regimen. Reviewed by [facility]. Original Note: Pharmacy Consult ? Medication Reconciliation Pharmacy has reviewed med rec completed by nursing. Looked through list from [facility]. It looks like patient started a Potassium Chloride 20 MEQ 3 day regimen on 10/10/23 for low potassium, I added it into the med rec since he would be on day 2 of 3 in the regimen and have 1 day left of that. Also added Dovato 50-300mg 1 daily that was on the list from facility. Otherwise Med Rec looked good done by nursing.
--- NOTE | 2023-10-12 09:18 | MHC.CM.PN ---
CM SPOKE TO PTS GUARDIAN/SISTER, LUANA WM [phone] SHE CONFIRMS PT IS A LTC RESIDENT OF [facility] SHE ASKS THAT SHE BE CONTACTED WITH CLINICAL UPDATES WELL DC DATE ONCE KNOWN GUARDIANSHIP AND MOLST ON FILE PCP: HERNAN SANDY IMM DELIVERED AND A COPY WAS SENT TO LUANA VIA EMAIL: [email or web address] DCP: RETURN TO [facility] VIA BLS
[2023-10-12] MEDS: levETIRAcetam in NaCl (iso-os) 1,000 MG/100 ML PIGGYBACK 400 MG IV ×2 (10:04→21:29)
--- NOTE | 2023-10-12 11:12 | PM.EVENT ---
Event Note Date of Service: 10/12/23 Event Note: Seen and evaluated this morning Laying in bed, altered, withdraw from pain but otherwise non-responsive Generalized rash, macupapular with itching dahl Continue steroids ID consult Time Spent With Patient Time: Total time managing care of this patient today ____ minutes.
[2023-10-12 12:00] VITALS: BP 112/60; PULSE 67; RESP 17; TEMP 36; O2SAT 99
--- NOTE | 2023-10-12 12:14 | PC.NURSE ---
Addendum entered by Cheli Galicia RN 10/12/23 15:52: Pt awake and alert to self, confused but able to hold conversation. Pt ambulated to bathroom to void with 1A, hematuria noted, MD Diego made aware. Original Note: Pt arrived to s3 at approximately 11:30, at this time pt lethargic and unable to answer any admission questions. Vital signs stable, MD Diego made aware, per MD Pt received medications for agitation in the ED and was aware of lethargy. 1:1 sitter at bedside for safety, bed alarm on.
[2023-10-12 12:18] VITALS: BMI 24.8
[2023-10-12] MEDS: Ammonium Lactate 12 % Lotion 226 GM BOTTLE 1 APPL TOPICAL ×2 (13:08→20:15)
--- NOTE | 2023-10-12 14:59 | HO.WOUND ---
Wound Consult: Initial 53yr old male? admitted to [facility] [place]12/23 - See progress notes and H&P for detailed history.? Wound consult placed for whole body rash.? Patient was awake but not interactive with his current environment. Whole body rash assessed by providers and ID - see notes for details - systemic steroid treatment in place - areas of rash are arms, legs, trunk, back and face - tissue remains intact and dry no topical treatment needed at this time. Defer to providers to continued systemic treatment. Coccyx and Perianal area Etiology: ?Stage 2 Pressure injury to Coccyx - ?Present on Admission Measurements:see charting for detailed measurement Wound Bed: linear partial thickness tissue loss with red moist wound bed Drainage / Odor: none noted Edges: ? linear and macerated Kristen wound: ?MASD-IAD (Moisture Associated Skin Damage - Incontinence Associated Dermatitis) mirrored red moist intact tissue - No Induration, Fluctuance noted Pain: tenderness expressed when cleansed Goals of Treatment: ? Triad to protect from friction and moisture and allow for autolytic healing - foam will likely trap moisture given the MASD at this time Triad alone is appropriate Recommendations: 1. Turn and Reposition every 2 hours and as needed for patient comfort.? Use pillows or wedges to support off loading positions. 2. Off Load all bony prominences with use of pillows and heel boots if needed.? Apply Preventative foams where needed. ? 3. Monitor for incontinence and moisture control, use barrier creams when needed for prevention and treatment. 4. Provide adequate and supplemental nutrition.? 5. Order low air loss mattress. 6. When applicable maintain blood glucose levels per Providers order. 7. Coccyx and Perianal - Off Load Pressure - Cleanse with PH balance spray or wipes, pat dry. ?Apply thin layer of Triad to wound bed - only pat and dab no scrub and rub when soiling occurs. Reapply thin layer PRN after each episode of incontinence. Re-consult wound care Nurse for wound deterioration or wound changes.
[2023-10-12 15:11] VITALS: BP 100/67; PULSE 82; RESP 19; TEMP 36.1; O2SAT 98
[2023-10-12 20:00] VITALS: BP 116/75; PULSE 99; RESP 20; TEMP 36.2; O2SAT 100
[2023-10-12] MEDS: Metoprolol Succinate ER 25 MG TAB.ER.24H PO (20:11)
[2023-10-12] MEDS: methylPREDNISolone Sod Succ 40 MG/ML VIAL IVPUSH (20:12)
[2023-10-12] MEDS: diphenhydrAMINE HCL 50 MG/ML VIAL 25 MG IVPUSH (20:20)
[2023-10-13 04:00] VITALS: BP 109/60; PULSE 77; RESP 16; TEMP 36.4; O2SAT 97
[2023-10-13] MEDS: Omeprazole 20 MG CAPSULE.DR PO (05:59)
[2023-10-13 06:42] LABS: Anion Gap 12 (12-20); Blood Urea Nitrogen 16 mg/dL (9-16); Calcium 8.2 mg/dL (8.4-10.2); Carbon Dioxide 23 mmol/L (22-29); Chloride 109 mmol/L (96-108); Creatinine Clr Calc Pharmacy 102.2; Estimated Glomerular Filt Rate > 60; Glucose Random 122 mg/dL (60-115); Potassium 3.5 mmol/L (3.3-5.1); Sodium 140 mmol/L (135-145)
[2023-10-13 06:43] LABS: Hematocrit 28.7 % (42.0-52.0); Mean Corpuscular HGB Conc 34.8 g/dl (31.0-36.0); Mean Corpuscular Hemoglobin 33.1 pg (27.0-33.0); Mean Platelet Volume 10.3 fL (9.4-12.4); Red Blood Count 3.02 X10*6/uL (4.60-5.80); Red Cell Distribution Width 12.7 % (11.0-16.0); White Blood Count 4.5 X10*3/uL (4.8-10.8)
[2023-10-13 06:44] LABS: Platelet Count 86 X10*3/uL (160-400)
[2023-10-13 08:00] VITALS: BP 120/78; PULSE 86; RESP 16; TEMP 36.6; O2SAT 99
[2023-10-13] MEDS: Metoprolol Succinate ER 25 MG TAB.ER.24H PO (08:37)
[2023-10-13] MEDS: 0.9 % Sodium Chloride Flush 3 ML SYRINGE IVFLUSH (08:37)
[2023-10-13] MEDS: methylPREDNISolone Sod Succ 40 MG/ML VIAL IVPUSH (08:37)
[2023-10-13] MEDS: Ammonium Lactate 12 % Lotion 226 GM BOTTLE 1 APPL TOPICAL (08:38)
--- NOTE | 2023-10-13 10:51 | MHC.CM.PN ---
Per MD rounds patient medically cleared for dc back to LTC @ [facility]. BLS transport scheduled for 2pm. RN and guardian aware.
--- NOTE | 2023-10-13 11:24 | PM.DS ---
DS: Providers Provider Date of Service: 10/13/23 Date of admission: 10/12/23 11:49 Date of discharge: 10/13/23 Primary care physician: Kaiden Dennis DO Consults: 10/12/23 09:50 Consult to Infectious Diseases Routine Consulting Provider: [facility] Reason for consultation: generalized rash w AMS, drug eruption ? 10/12/23 11:57 Consult to Wound Care Routine Reason for consultation: All over body rash DS: Diagnosis Discharge Diagnosis (1) AMS (altered mental status): Status: Acute (2) Rash: Status: Acute (3) Altered mental status: Status: Acute (4) Drug rash: Status: Acute DS: Summary Hospital Course Hospital Course: Admission note HPI This is a 53-year-old male with pertinent history of HIV on HAART, history of CVA, seizure disorder, frontal temporal dementia, blindness, history of substance use disorder, gastroesophageal reflux disease, mood disorder, history of GI cancer, history of recurrent aspiration who was sent to the emergency department for evaluation of altered mentation. Unable to obtain history from the patient. He was agitated in the ER and given Ativan and Zyprexa in the ER. Patient is drowsy and only eye opening to verbal stimulus at the time of my evaluation. History obtained from ER provider and chart review. Patient developed a whole-body rash which was pruritic days prior to presentation. Patient also was febrile at outside facility, and documented temperature. He was found to be altered from his baseline, less verbal, not engaging in conversation and with poor p.o. intake and hence sent to the ER further evaluation. Of note, patient was recently admitted with acute encephalopathy and sepsis due to aspiration pneumonia and discharged on 09/28 with doxycycline and Augmentin. Unable to obtain review of systems. Hospital course # Acute encephalopathy on presentation likely related to polypharmacy and IV medications received in ED to control his agitation. Upon waking up later on 10/11 he was in good mood, tolerated diet with no reported altered mentation or agitation overnight. back to his baseline. # Erythematous pruritic rash likely a result of drug hypersensitivity reaction from antibiotics usage recently and being on Carbamazepine. Treated with antihistaminics and systemic steroids with no signs of infectious process. Rash improved significantly over the course of hospital stay as itching and erythema went down. No mucosal or airway involvement. Hemodynamically stable. Will be discharged on Prednisone tapering dose along with Benadryl PO. # HIV: Continue HAART # History of TBI with behavioral disturbance/frontotemporal dementia: Continue lorazepam, lurasidone and Tegretol. Tegretol was held as the patient was altered and could not tolerate PO. # Seizure disorder: On Keppra and Tegretol Tegretol can be associated with skin rash. in his case we need to monitor if rash starts to get worse again after restarting it will need to change it to different seizure agent. In his case Augmentin\Doxycycline are the likely cause of his rash given Carbamazepine is not new medication. Discharge plan Continue Prednisone tapering dose as prescribed Ammonium lactate for dry skin Benadryl as needed for itching If rash worsens again hold Carbamazepine and discuss its need with primary team The patient made quicker than expected improvement in mentation and skin rash and will not need 2 overnight hospital stay inpatient. Time Attestation Discharge Coordination Time (in mins): 38 Quality: Safe Use of Opioids Does Pt have an Active Cancer Diagnosis on the Problem List?: No Quality: Stroke Does the patient have a stroke diagnosis?: No Physical Exam Vital Signs: Vital Signs: Last Vital Signs Temp 97.9 F 10/13/23 08:00 Pulse 86 10/13/23 08:00 Resp 16 10/13/23 08:00 BP 120/78 10/13/23 08:00 Pulse Ox 99 10/13/23 08:00 O2 Del Method Room Air 10/13/23 08:00 BMI result Body Mass Index 24.8 Const: Other: Constitutional : Awake, interactive, not in distress Neck : Normal inspection, Supple Cardiovascular : RRR, no JVP, no lower extremity edema Respiratory : good bilateral air entry, no crackles, wheezes or rhonchi Gastrointestinal: soft, lax, Normal bowel sounds, Non tender Skin : Warm, Dry, Generalized Macupapular rash with scratching dahl, less erythema, more pinkish than red mainly in extremities Neurological : Alert & oriented x3, No focal deficit DS: Data Data Completed and Pending Labs on day of discharge: Laboratory Results - last 24 hr 10/13/23 05:47 WBC 4.5 L RBC 3.02 L Hgb 10.0 L Hct 28.7 L MCV 95.0 MCH 33.1 H MCHC 34.8 RDW 12.7 Plt Count 86 L MPV 10.3 Absolute Nucleated RBC 0.000 Nucleated RBC % (auto) 0.0 Sodium 140 Potassium 3.5 Chloride 109 H Carbon Dioxide 23 Anion Gap 12 BUN 16 Creatinine 0.79 Estim Creat Clear Calc 102.2 Estimated GFR > 60 Random Glucose 122 H Calcium 8.2 L Preliminary micro results at discharge 10/11/23 23:15 Blood Culture - Preliminary Blood - Venous No growth after 24 hours. 10/11/23 17:33 Blood Culture - Preliminary Blood - Venous No growth after 24 hours. Imaging Chest x-ray: Radiologist's impression: ITS Impressions Chest X-Ray 10/11/23 16:35 IMPRESSION: Unremarkable examination. Electronically signed by: Nica Reilly MD 10/11/2023 06:16 PM EDT RP Head CT 10/11/23 21:00 IMPRESSION: 1. No evidence of acute intracranial hemorrhage or edematous territorial infarction. 2. Chronic encephalomalacia of the inferior left frontotemporal lobes. Moderate underlying microangiopathy and generalized cerebral volume loss. Electronically signed by: Montrell Lozano DO 10/11/2023 10:39 PM EDT RP Discharge Plan Discharge Anticipated Discharge Date/Time: 10/13/23 11:12 Patient Disposition: Xfer SNF Discharge Diagnosis: Drug rash Referrals: [facility] [Outside] - 1 Day (resume long term care phlebotomist care) Kaiden Dennis DO [Primary Care Provider] - 1 Week Discharge Medications: New ammonium lactate 12 % Lotion 1 appl topical BID Qty: 400 0RF Protocol: Apply to: Apply to: lower extremities bilaterally diphenhydramine HCl 25 mg tablet 25 mg PO TID PRN (Reason: itching) Qty: 20 0RF prednisone 20 mg tablet See Taper PO BID Qty: 60 0RF Taper: Prednisone 40 mg daily for 3 Days and 0 Hour 30 mg daily for 3 Days and 0 Hour 20 mg daily for 3 Days and 0 Hour 10 mg daily for 3 Days and 0 Hour Continued potassium chloride 20 mEq Tablet Extended Release 40 meq PO BID Rx Instructions: Start 10/10/23 and end 10/13/23. Dovato 50-300 mg Tablet 1 tab PO DAILY sennosides [senna] 8.6 mg Tablet 8.6 mg PO Q24H PRN (Reason: Constipation) calcium carbonate [Calcium 500] 500 mg calcium (1,250 mg) tablet,chewable 500 mg PO DAILY@0800 carbamazepine 100 mg Tablet Extended Release 12 Hr 100 mg PO BEDTIME Rx Instructions: Take with 200mg for total of 300mg at bedtime. carbamazepine 200 mg Tablet Extended Release 12 Hr 200 mg PO BEDTIME Rx Instructions: Take with 100mg for total of 300mg at bedtime. pyrithione zinc 1 % Shampoo 1 appl TOPICAL DAILY PRN (Reason: Dandruff) Rx Instructions: wet hair then apply , let stand 5 mins then rinse. Repeat. pyrithione zinc 1 % Shampoo 1 appl TOPICAL MOWEFR@2100 loperamide 2 mg Tablet 2 mg PO DAILY PRN (Reason: second loose stool) Rx Instructions: after 4mg dose take 2mg after every subsequent loose stool. carbamazepine 400 mg Tablet Extended Release 12 Hr 400 mg PO DAILY sennosides [senna] 8.6 mg Tablet 8.6 mg PO BID lorazepam 2 mg/mL Solution 1 mg IV Q5M PRN (Reason: Seizure Activity ) Rx Instructions: until hemodynamically stable omeprazole 20 mg capsule,delayed release(DR/EC) 20 mg PO DAILY@0630 acetaminophen 325 mg capsule 650 mg PO Q6H MDD 3g PRN (Reason: Fever/Pain) Fleet Enema 19-7 gram/118 mL enema 118 ml KS DAILY PRN (Reason: Constipation, Only if Bisacodyl Sup Ineffective) levetiracetam [Keppra] 1,000 mg tablet 2,000 mg PO BID lurasidone [Latuda] 80 mg tablet 80 mg PO DAILY Rx Instructions: must administer with food (at least 350 calories) loperamide 2 mg capsule 4 mg PO ONCE MDD 8mg in 24Hr Rx Instructions: Give 2 tabs for first loose stool metoprolol succinate 25 mg tablet extended release 24 hr 25 mg PO BID polyethylene glycol 3350 [Miralax] 17 gram/dose powder 17 g PO DAILY sodium chloride 1 gram tablet 1,000 mg PO TID Discharge Orders: Discharge Order (Routine); Ordered 10/13/23 Ordered By: Kell Diego Diet: Advance to usual diet Activity on Discharge: As tolerated Stand Alone Forms: Patient Portal Discharge page Print Language: Kyrgyz Care Plan Goals: Continue Prednisone tapering dose as prescribed Ammonium lactate for dry skin Benadryl as needed for itching If rash worsens again hold Carbamazepine and discuss its need with primary team Health Concerns: Read below Plan of Treatment: Read below Assessment: Read below Discharge Date/Time: 10/13/23 14:27
[2023-10-13] MEDS: levETIRAcetam in NaCl (iso-os) 1,000 MG/100 ML PIGGYBACK 400 MG IV (11:27)
[2023-10-13] MEDS: Lurasidone HCl 80 MG TABLET PO (12:42)
[2023-10-13] MEDS: lamiVUDine 150 MG TABLET 300 MG PO (13:49)
[2023-10-13] MEDS: Dolutegravir Sodium 50 MG TABLET PO (13:49)
[2023-10-13 18:23] LABS: Myeloperoxidase Antibody <1.0 AI; Proteinase 3 PR3 Antibodies <1.0 AI
--- NOTE | 2023-10-16 16:03 | P.CDIM_ITS ---
PROVIDER RESPONSE TEXT: To clarify, the appropriate diagnosis supported by the clinical indicators: Toxic metabolic QUERY TEXT: PHYSICIAN'S DOCUMENTATION REQUEST Date of Query: 10/13/2023 07:55 AM EDT Patient Name: Theo Key Admit Date: 10/12/2023 Dear Kell Diego MD, A review of the medical record indicates additional documentation may be needed. Please review below and update the documentation accordingly. Clinical Indicators: to ED for altered mental status, body rash Per H&P 10/12/23: acute encephalopathy Per Event note 10/12/23: altered, withdraw from pain but otherwise non-responsive Based on the above, please further specify, in the Progress Notes, the known or suspected type of the documented encephalopathy: Metabolic Septic Toxic Toxic metabolic Hypertensive Anoxic Alcoholic Hepatic (reported as hepatic failure and needs further specificity as to acute, subacute, or chronic) Due to a specified condition (such as UTI, hyponatremia, CVA, etc.) Other (explain) Clinically unable to determine (explain) Thank you, Bella Mathis RN Use of terms such as suspected, likely, concern for, or probable (associated with a specific diagnosi s that is being evaluated, monitored, or treated as if it exists) are acceptable and can be coded in the inpatient se tting, when documented at the time of discharge. Please use your independent medical judgment in providing your response. THIS QUERY IS PART OF THE PERMANENT MEDICAL RECORD
== END 2023-10-13 14:27 | disposition skilled nursing facility (03) | DRG 606 ==
LOC: HO.ED 17:20 → HO.EDOVER 10-12 00:32 → HO.S3 10-12 10:46
PROVIDERS: Physician Assistant Medical; Admitting Provider Student in an Organized Health Care Education/Training Program; Emergency Provider Emergency Medicine; PCP Hospitalist; Visit Provider Student in an Organized Health Care Education/Training Program
DX: L27.0 Generalized skin eruption due to drugs and medicaments taken internally (principal); G92.8 Other toxic encephalopathy; F02.818 Dementia in other diseases classified elsewhere, unspecified severity, with other behavioral disturbance; G31.09 Other frontotemporal neurocognitive disorder; T50.915A Adverse effect of multiple unspecified drugs, medicaments and biological substances, initial encounter; S06.9XAS Unspecified intracranial injury with loss of consciousness status unknown, sequela; D69.6 Thrombocytopenia, unspecified; T36.0X5A Adverse effect of penicillins, initial encounter; T36.1X5A Adverse effect of cephalosporins and other beta-lactam antibiotics, initial encounter; T36.4X5A Adverse effect of tetracyclines, initial encounter; X58.XXXS Exposure to other specified factors, sequela; Z21 Asymptomatic human immunodeficiency virus [HIV] infection status; K21.9 Gastro-esophageal reflux disease without esophagitis; G40.909 Epilepsy, unspecified, not intractable, without status epilepticus; Z20.818 Contact with and (suspected) exposure to other bacterial communicable diseases; Z20.822 Contact with and (suspected) exposure to COVID-19; Z87.891 Personal history of nicotine dependence; Z79.899 Other long term (current) drug therapy
CPT/HCPCS: 0241U; 36415; 70450; 71045; 80048; 80053; 81001; 83605; 83735; 85025; 85027; 85652; 86021; 87040; 87086; 93005; 96361; 96365; 96366; 96372; 96375; 96376; 99221; 99285; J1200; J1953; J2060; J2359; J2919

== ENCOUNTER → 2023-10-12 00:25 | Outpatient (BNV) | payer MEDICARE, MEDICAID, SELFPAY | PROVIDERS: Admitting Provider Student in an Organized Health Care Education/Training Program; Emergency Provider Emergency Medicine; PCP Hospitalist; Visit Provider Student in an Organized Health Care Education/Training Program | DX: R41.82 Altered mental status, unspecified (principal); R21 Rash and other nonspecific skin eruption; L27.0 Generalized skin eruption due to drugs and medicaments taken internally | CPT/HCPCS: 99223; 99239; 99499 ==